=== PATIENT | female | born 1970 | race Caucasian/White ===

== ENCOUNTER 2016-11-16 02:04 | Observation (INO) | payer OTHER ==
[2016-11-16] MEDS ORDERED: NS 0.9% 1000 ML* 1,000 ML IV SCH (03:00)
[2016-11-16 03:27] LABS: Hematocrit 38 % (35-47); Hemoglobin 12.9 g/dl (12.0-16.0); Mean Corpuscular HGB Conc 34 g/dl (31-36); Mean Corpuscular Hemoglobin 30 pg (27-31); Mean Corpuscular Volume 90 fL (80-97); Mean Platelet Volume 8 um3 (7.4-10.4); Red Blood Count 4.25 10^6/ul (4.0-5.4); Red Cell Distribution Width 13 % (10.5-15); White Blood Count 9.7 10^3/ul (3.5-10.8)
[2016-11-16 03:39] LABS: Albumin 3.7 g/dL (3.2-5.2); BUN/Creatinine Ratio 20.8 (8-20); C Reactive Protein 6.47 mg/L (< 5.00); Calcium 8.9 mg/dL (8.6-10.3); EGFR African American 111.7 (>60); EGFR Non-African American 86.8 (>60); Globulin 2.8 g/dL (2-4); Magnesium 2.2 mg/dL (1.9-2.7); Potassium 3.5 mmol/L (3.5-5.0); Total Bilirubin 0.4 mg/dL (0.2-1.0); Total Protein 6.5 g/dL (6.4-8.9)
[2016-11-16 03:55] LABS: TSH (Thyroid Stimulating Horm) 0.9 mcIU/mL (0.34-5.60)
[2016-11-16] MEDS ORDERED: NS 0.9% 1000 ML* 1,000 ML IV ONE (04:28)
[2016-11-16 04:58] LABS: Urine Bilirubin Negative (Negative); Urine Glucose Negative (Negative); Urine Nitrite Negative (Negative)
[2016-11-16] MEDS ORDERED: Iohexol 350* (CONTRAST) 500 ML MDV IV ONE (05:15)
[2016-11-16] MEDS ORDERED: Ketorolac INJ* 30 MG/ML 1 ML VIAL IV ONE (05:58)
--- NOTE | 2016-11-16 08:01 | ED ---
Andrea Man Salem, scribed for Wade Draper MD on 11/16/16 at 0427 . HPI Chest Pain - HPI Summary HPI Summary: Patient is a 46 y/o female who presents to the ED with CP since 0100 today. She states that pain woke her up this morning and she has been having palpitations since. She also states that the pounding is intermittent, but pain is constant. She also reports nausea and vomiting a few times following onset and states that pain radiated from groin into RLE. She has constant abd pain and a cough at baseline, both of which are unchanged form baseline. Pt states that she took a 325mg ASA with alleviation. Pt reports that she had quit smoking 3 months ago, but started again this week. Pt states that she may be dehydrated as the last few days have been really busy for her. PSHx of cholecystectomy. No hx of asthma. - History of Current Complaint Chief Complaint: EDChestPainROMI Time Seen by Provider: 11/16/16 04:07 Hx Obtained From: Patient Onset/Duration: Started Hours Ago, Still Present Timing: Constant - CP., Intermittent - Pounding. Initial Severity: Moderate Current Severity: Moderate Chest Pain Location: Diffuse Chest Pain Radiates: Yes Chest Pain Radiates To:: Other - From groin to RLE. Character: Pounding Aggravating Factor(s): Nothing Alleviating Factor(s): Nothing Associated Signs and Symptoms: Positive: Chest Pain, Nausea, Palpitations, Abdominal Pain, Vomiting - Allergy/Home Medications Allergies/Adverse Reactions: Allergies Allergy/AdvReac Type Severity Reaction Status Date / Time Codeine Allergy Mild Headache Verified 06/22/15 10:06 Iodine Allergy Mild Rash Verified 06/22/15 10:06 Latex Allergy Unknown Verified 06/22/15 10:06 Reaction Details Penicillins Allergy Hives Verified 06/22/15 10:06 PMH/Surg Hx/FS Hx/Imm Hx Endocrine/Hematology History: Denies: Hx Anticoagulant Therapy, Hx Diabetes, Hx Thyroid Disease Cardiovascular History: Denies: Hx Hypertension, Hx Pacemaker/ICD Respiratory History: Denies: Hx Asthma, Hx Chronic Obstructive Pulmonary Disease (COPD) GI History: Reports: Other GI Disorders - Chronic loose stools History: Denies: Hx Renal Disease Musculoskeletal History: Reports: Hx Back Problems Sensory History: Denies: Hx Hearing Aid Neurological History: Denies: Hx Dementia, Hx Seizures Psychiatric History: Denies: Hx Panic Disorder, Hx Substance Abuse - Surgical History Surgery Procedure, Year, and Place: RIGHT KNEE ARTHROSCOPIC 1990 & 2000; GALLBLADDER REMOVED 2009; VERICOSE VEIN RT SIDE 2014 Infectious Disease History: No Infectious Disease History: Denies: Hx Hepatitis, Hx Human Immunodeficiency Virus (HIV), Traveled Outside the [place] in Last 30 Days - Family History Known Family History: Positive: Other - Leukemia - father. - Social History Alcohol Use: None Hx Substance Use: No Substance Use Type: Reports: None Hx Tobacco Use: Yes Smoking Status (MU): Current Some Day Smoker Type: Cigarettes Amount Used/How Often: 1-2 cigarettes/day Have You Smoked in the Last Year: Yes Review of Systems Negative: Fever Positive: Palpitations, Chest Pain Positive: Cough Positive: Abdominal Pain, Vomiting, Nausea All Other Systems Reviewed And Are Negative: Yes Physical Exam Triage Information Reviewed: Yes Vital Signs On Initial Exam: Initial Vitals BP 129/59 11/16/16 02:59 Vital Signs Reviewed: Yes Appearance: Positive: Well-Appearing, No Pain Distress Skin: Positive: Warm, Skin Color Reflects Adequate Perfusion, Dry Head/Face: Positive: Normal Head/Face Inspection Eyes: Positive: EOMI, DAWNA Neck: Positive: Supple, Nontender Respiratory/Lung Sounds: Positive: Clear to Auscultation, Breath Sounds Present Cardiovascular: Positive: RRR Abdomen Description: Positive: Nontender, Soft Bowel Sounds: Positive: Present Musculoskeletal: Positive: Normal, Strength/ROM Intact Neurological: Positive: Normal, Sensory/Motor Intact, Alert, Oriented to Person Place, Time Psychiatric: Positive: Affect/Mood Appropriate Diagnostics - Vital Signs Vital Signs Temp Pulse Resp BP Pulse Ox 11/16/16 03:30 71 23 125/53 95 11/16/16 03:06 97.2 F 73 18 132/53 94 11/16/16 03:00 132/53 11/16/16 02:59 129/59 - Laboratory Lab Results: Lab Results 11/16/16 11/16/16 11/16/16 Range/Units 03:00 03:00 03:00 WBC 9.7 (3.5-10.8) 10^3/ul RBC 4.25 (4.0-5.4) 10^6/ul Hgb 12.9 (12.0-16.0) g/dl Hct 38 (35-47) % MCV 90 (80-97) fL MCH 30 (27-31) pg MCHC 34 (31-36) g/dl RDW 13 (10.5-15) % Plt Count 271 (150-450) 10^3/ul MPV 8 (7.4-10.4) um3 Neut % (Auto) 55.7 (38-83) % Lymph % (Auto) 31.9 (25-47) % [place] % (Auto) 7.0 (1-9) % Eos % (Auto) 5.0 (0-6) % Baso % (Auto) 0.4 (0-2) % Absolute Neuts (auto) 5.4 (1.5-7.7) 10^3/ul Absolute Lymphs (auto) 3.1 (1.0-4.8) 10^3/ul Absolute Monos (auto) 0.7 (0-0.8) 10^3/ul Absolute Eos (auto) 0.5 (0-0.6) 10^3/ul Absolute Basos (auto) 0 (0-0.2) 10^3/ul Absolute Nucleated RBC 0 10^3/ul Nucleated RBC % 0 INR (Anticoag Therapy) 0.91 (0.89-1.11) APTT 31.7 (26.0-36.3) seconds D-Dimer, Quantitative < 200 (Less Than 230) ng/mL Sodium 138 (133-145) mmol/L Potassium 3.5 (3.5-5.0) mmol/L Chloride 106 (101-111) mmol/L Carbon Dioxide 27 (22-32) mmol/L Anion Gap 5 (2-11) mmol/L BUN 15 (6-24) mg/dL Creatinine 0.72 (0.51-0.95) mg/dL Est GFR ( Amer) 111.7 (>60) Est GFR (Non-Af Amer) 86.8 (>60) BUN/Creatinine Ratio 20.8 H (8-20) Glucose 133 H (70-100) mg/dL Lactic Acid (0.5-2.0) mmol/L Calcium 8.9 (8.6-10.3) mg/dL Magnesium 2.2 (1.9-2.7) mg/dL Total Bilirubin 0.40 (0.2-1.0) mg/dL AST 18 (13-39) U/L ALT 22 (7-52) U/L Alkaline Phosphatase 92 (34-104) U/L Total Creatine Kinase 166 (10-223) U/L CK-MB (CK-2) 6.0 (0.6-6.3) ng/mL Troponin I 0.00 (<0.04) ng/mL C-Reactive Protein 6.47 H (< 5.00) mg/L B-Natriuretic Peptide ( - 100) pg/mL Total Protein 6.5 (6.4-8.9) g/dL Albumin 3.7 (3.2-5.2) g/dL Globulin 2.8 (2-4) g/dL Albumin/Globulin Ratio 1.3 (1-3) Lipase 11 (11.0-82.0) U/L TSH 0.90 (0.34-5.60) mcIU/mL 11/16/16 11/16/16 Range/Units 03:00 03:00 WBC (3.5-10.8) 10^3/ul RBC (4.0-5.4) 10^6/ul Hgb (12.0-16.0) g/dl Hct (35-47) % MCV (80-97) fL MCH (27-31) pg MCHC (31-36) g/dl RDW (10.5-15) % Plt Count (150-450) 10^3/ul MPV (7.4-10.4) um3 Neut % (Auto) (38-83) % Lymph % (Auto) (25-47) % [place] % (Auto) (1-9) % Eos % (Auto) (0-6) % Baso % (Auto) (0-2) % Absolute Neuts (auto) (1.5-7.7) 10^3/ul Absolute Lymphs (auto) (1.0-4.8) 10^3/ul Absolute Monos (auto) (0-0.8) 10^3/ul Absolute Eos (auto) (0-0.6) 10^3/ul Absolute Basos (auto) (0-0.2) 10^3/ul Absolute Nucleated RBC 10^3/ul Nucleated RBC % INR (Anticoag Therapy) (0.89-1.11) APTT (26.0-36.3) seconds D-Dimer, Quantitative (Less Than 230) ng/mL Sodium (133-145) mmol/L Potassium (3.5-5.0) mmol/L Chloride (101-111) mmol/L Carbon Dioxide (22-32) mmol/L Anion Gap (2-11) mmol/L BUN (6-24) mg/dL Creatinine (0.51-0.95) mg/dL Est GFR ( Amer) (>60) Est GFR (Non-Af Amer) (>60) BUN/Creatinine Ratio (8-20) Glucose (70-100) mg/dL Lactic Acid 1.1 (0.5-2.0) mmol/L Calcium (8.6-10.3) mg/dL Magnesium (1.9-2.7) mg/dL Total Bilirubin (0.2-1.0) mg/dL AST (13-39) U/L ALT (7-52) U/L Alkaline Phosphatase (34-104) U/L Total Creatine Kinase (10-223) U/L CK-MB (CK-2) (0.6-6.3) ng/mL Troponin I (<0.04) ng/mL C-Reactive Protein (< 5.00) mg/L B-Natriuretic Peptide 12 ( - 100) pg/mL Total Protein (6.4-8.9) g/dL Albumin (3.2-5.2) g/dL Globulin (2-4) g/dL Albumin/Globulin Ratio (1-3) Lipase (11.0-82.0) U/L TSH (0.34-5.60) mcIU/mL Result Diagrams: 11/16/16 03:00 11/16/16 03:00 Lab Statement: Any lab studies that have been ordered have been reviewed, and results considered in the medical decision making process. - Radiology CXR Radiology Interpretation Completed By: Radiologist - IMPRESSION: see EMR pending. - CT CHEST CT Interpretation Completed By: Radiologist - IMPRESSION:According to the technologist, the IV is not optimally positioned. There was leakage of contrast during the injection and only 60 cc were injected. Therefore the scan is limited due to under opacification of the pulmonary arteries. The main pulmonary artery contrast density is 126 Hounsfield units, well short of the minimum acceptable 200 Hounsfield units. No pulmonary embolus of the main, right , or left pulmonary arteries or their major central branch point. The pulmonary arteries distal to this cannot be adequately assessed for pulmonary embolus. Negative for thoracic aortic aneurysm or dissection. Lungs are clear of acute disease. 7mm noncalcified right lower lobe nodule (adjacent to a calcified granuloma). Follow-up recommended according to established criteria. Calcified granuloma left lower lobe. Chest Pain Course/Dx - Course Course Of Treatment: NO CRITICAL CARE TIME Assessment/Plan: STABLE IN ED. DISPOSITION PENDING AT SHIFT CHANGE. - Diagnoses Provider Diagnoses: Chest pain Discharge - Discharge Plan Condition: Stable Disposition: OTHER Discharge Disposition Comment: C Referrals: Anny Laurent MD [Primary Care Provider] - The documentation as recorded by the Andrea acharya Salem accurately reflects the service I personally performed and the decisions made by , Wade Draper MD.
--- NOTE | 2016-11-16 08:11 | RAD ---
INDICATION: Chest pain. COMPARISON: Comparison is made with a prior chest x-ray study from November 15, 2012. TECHNIQUE: A portable view of the chest was obtained. FINDINGS: Cardiac and mediastinal contours appear to be within normal limits. The lungs are clear. No pleural effusion is seen. IMPRESSION: NO EVIDENCE FOR ACUTE DISEASE.
[2016-11-16] MEDS ORDERED: Nitroglycerin TAB 0.4 MG* 0.4 MG TAB SL ONE (08:26)
--- NOTE | 2016-11-16 08:28 | RAD ---
INDICATION: Chest pain. Short of breath. Evaluate for pulmonary embolus. COMPARISON: CT abdomen pelvis September 09, 2014 TECHNIQUE: Axial source images were obtained from the thoracic inlet to the hemidiaphragms following administration of [address] angiographic technique was utilized. Coronal and sagittal reconstructed images were acquired. The total dose of contrast was believed to be approximately 60 mL due to patient with the IV. This results in suboptimal opacification of pulmonary arteries. The examination will need to be repeated if indicated. By report the d-dimer was negative and the decision was made not to repeat the examination. CHEST FINDINGS: Neck/thyroid: The visualized neck to include the thyroid appear normal. Chest wall: There are no acute abnormalities of the bony thorax or chest wall. There is no supraclavicular, infraclavicular, or axillary lymphadenopathy. Lungs : There are calcified and noncalcified granulomas in the lung bases similar to the 2015 examination. The pulmonary interstitium appears normal. There are no endobronchial lesions. Cardiomediastinal structures: There is no CT evidence of acute pulmonary embolic disease involving the main pulmonary trunk are right or left main pulmonary arteries. More peripheral pulmonary arteries are not adequately opacified. The heart is normal in size. There is no pericardial effusion. There is no evidence of aortic aneurysm or dissection. There is no mediastinal or hilar adenopathy. There are numerous calcified mediastinal lymph nodes. The esophagus appears normal. Pleura : There are no pleural-based masses or effusions. Other: None. IMPRESSION: SUBOPTIMAL PULMONARY ARTERIAL OPACIFICATION (SEE ABOVE). OLD GRANULOMATOUS DISEASE.
--- NOTE | 2016-11-16 08:32 | ED ---
Tima Man Matthew, scribed for Gustavo Cash MD on 11/16/16 at 0759 . Progress - Progress Note Progress Note: Patient was signed out by Dr. Draper. A 46 y/o female presents to the ED with chest pain. She states that she continues to have the chest pain. VITAL SIGNS: Reviewed. GENERAL: Patient is an obese female who is lying comfortable in the stretcher. Patient is not in any acute respiratory distress. HEAD AND FACE: No signs of trauma. No ecchymosis, hematomas or skull depressions. No sinus tenderness. . EARS: Hearing grossly intact. Ear canals and tympanic membranes are within normal limits. MOUTH: Oropharynx within normal limits. NECK: Supple, trachea is midline, no adenopathy, no JVD, no carotid bruit, no c- spine tenderness, neck with full ROM. CHEST: Symmetric, no tenderness at palpation LUNGS: Clear to auscultation bilaterally. No wheezing or crackles. CVS: Regular rate and rhythm, S1 and S2 present, no murmurs or gallops appreciated. ABDOMEN: Soft, non-tender. No signs of distention. No rebound no guarding, and no masses palpated. Bowel sounds are normal. EXTREMITIES: FROM in all major joints, no edema, no cyanosis or clubbing. NEURO: Alert and oriented x 3. No acute neurological deficits. Speech is normal and follows commands. 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 As per recommendation from Dr. Draper to admit patient to R/O ACS. She had a Chest CT and r/o a PE. I discussed the case with Dr. Zamorano form the hospitalist services and he accepted the patient for admission. Patient is A+O x and he is hemodynamically stable. The patient is in stable condition and is being admitted to [facility]. Course/Dx - Diagnoses Provider Diagnoses: Chest pain, CHest pain r/o ACS - Provider Notifications Discussed Care Of Patient With: Dr. Zamorano (Hospitalist) at 08:16 -- Notified of patient's history and will admit the paitent. The documentation as recorded by the Tima acharya Matthew accurately reflects the service I personally performed and the decisions made by Shailesh lopez Walter, MD.
[2016-11-16] MEDS ORDERED: Acetaminophen TAB* 325 MG PO PRN (11:30)
[2016-11-16] MEDS ORDERED: Enoxaparin(*) 40 MG/0.4 ML SYR SUBCUT SCH (12:00)
[2016-11-16] MEDS ORDERED: Aminophylline IV* 25 MG/ML 10 ML VIAL ONE (12:56)
[2016-11-16] MEDS ORDERED: Regadenoson* 0.4 MG/5 ML SYRINGE ONE (12:56)
--- NOTE | 2016-11-16 15:36 | HP ---
HISTORY AND PHYSICAL: DATE OF ADMISSION: 11/16/16 PRIMARY CARE PHYSICIAN: Anny Laurent MD CHIEF COMPLAINT: Chest pain. HISTORY OF PRESENT ILLNESS: Ms. Saji Crouch is a 46-year-old female with past medical history of chronic pain, osteoarthritis, who presents to the hospital after awakening this morning with chest pain. She states yesterday she was feeling well. She cleaned the house and thinks that maybe she "overdid it." She was very tired before bed and went right to sleep; however, she woke up at 1 a.m. with a sharp stabbing pain in the left side of the chest that did not radiate. She states she sat up on the side of the bed and felt very nauseous and had one episode of emesis in the bathroom. She felt dizzy and faint and also had some palpitations. She states that after she threw up, the palpitations seemed to improve; however, she developed chest pressure on the left side and called EMS. She said when EMS came, she had some right lower extremity numbness and she thought possibly some weakness, although she admits that her legs were oddly bent underneath her as she was sitting on the bathroom floor. She took aspirin 325 mg at home and she states that that improved the pain within about 10 minutes; however, it has not completely resolved and is still persistent presently. She states it is worse with movement, like moving around on the bed, not sure if it is worse with exertion. Sometimes, it is worse with deep breathing and she states it is tender to palpation. In the ED, she received some Toradol. Recently, she has been feeling fairly well. She denies any fever or chills. She has had a mild cough, has chronic abdominal pain that may be worsening lately. She denies any dysuria. No blood. She has had some loose stools, which is also a chronic issue. PAST MEDICAL HISTORY: Chronic pain, OA. PAST SURGICAL HISTORY: 1. Cholecystectomy. 2. Knee arthroscopy x2. 3. Varicose vein stripping in 2013. 4. Colonoscopy in 2009. HOME MEDICATIONS: Occasionally, she will take Motrin, but no scheduled medications. ALLERGIES: PENICILLIN, CODEINE, IODINE, and LATEX. FAMILY HISTORY: Significant for mother with diabetes and hypothyroidism, father with leukemia and CAD, maternal grandfather with diabetes, maternal grandmother with lung cancer, paternal grandmother with hypertension. SOCIAL HISTORY: The patient smoked about a pack and a half per day for 20 years , had stopped about 3 months ago, but resumed smoking within the past few days. She denies any alcohol or illicit drug use. REVIEW OF SYSTEMS: A 12-point review of systems negative except for that as noted in the HPI. PHYSICAL EXAMINATION GENERAL: The patient is a morbidly obese female, lying in bed, in no apparent distress. VITAL SIGNS: On admission, temperature 97.2, heart rate of 73, respiratory rate of 18, O2 saturation 94% on room air, blood pressure 132/53. HEENT: Anicteric sclerae. Moist mucous membranes. No cervical adenopathy. CARDIOVASCULAR: Regular rate and rhythm. S1 and S2 present. No murmurs, gallops, or rubs. LUNGS: Clear to auscultation bilaterally. No wheezes, rales, or rhonchi. The patient does have reproducible chest pain in the left midsternal area. ABDOMEN: Obese, soft, nondistended. Mild tender to palpation diffusely. Bowel sounds positive. EXTREMITIES: No cyanosis, clubbing, or edema. Strength is 5/5 throughout bilateral lower extremities. Reports possibly some mild decreased sensation in the right lower extremity. NEURO: The patient is alert and oriented x3. SKIN: Warm, dry, and well perfused. LABORATORY DATA/DIAGNOSTIC STUDIES: White blood cell count of 9.7, hematocrit of 38, platelets of 271. INR is 0.91, sodium 138, potassium 3.5, chloride 106, carbon dioxide 27, BUN of 15, creatinine 0.72, glucose of 133, lactic acid of 1.1. LFTs within normal limits. Troponin of 0.00 x2. CRP of 6.47. TSH of 0.9. UA with trace ketones. Chest x-ray, personally reviewed, shows no acute disease. EKG, personally reviewed, shows normal sinus rhythm. No ischemic changes. The patient underwent a CTA of the chest that was suboptimal for a PE evaluation; however, the patient did have a negative D-dimer. ASSESSMENT AND PLAN: Chest pain, palpitations, with associated nausea and vomiting in a 46-year-old female with past medical history of morbid obesity, chronic pain. 1. Chest pain and palpitations. The patient does have some cardiac risk factors with a smoking history, morbid obesity, sedentary lifestyle, and possible family history; however, her pain seems to be reproducible, which makes ischemic cause less likely; however, with the patient's palpitations, we will monitor on telemetry. I have ordered a stress test and we will continue to trend troponins one more time. For now, we will treat the patient's pain with Tylenol and ibuprofen as this seems like this could possibly just be a musculoskeletal cause. The patient received a full dose of aspirin early this morning. We will continue with a baby aspirin daily for now. 2. DVT prophylaxis. Lovenox subcu. 3. Code status. The patient is a full code. TIME SPENT: Total time spent on this admission 40 minutes, with over half the time spent [id number] with the patient in counseling and coordinating care. CC: Anny Laurent MD* [id number]/CPS #: [id number] MTDD
[2016-11-16] MEDS ORDERED: Nitroglycerin TAB 0.4 MG* 0.4 MG TAB SL PRN (18:09)
[2016-11-16] MEDS: Omeprazole CAP* 20 MG PO SCH (18:54)
[2016-11-17] MEDS: Ibuprofen TAB* 400 MG PO PRN ×2 (03:41→10:32)
[2016-11-17] MEDS: Omeprazole CAP* 20 MG PO SCH (05:46)
[2016-11-17 08:28] VITALS: BP 116/59
--- NOTE | 2016-11-17 08:28 | RAD ---
INDICATION: Chest pain COMPARISON: None TECHNIQUE: Rest images were acquired following the intravenous injection of 25.9 millicuries of technetium 99m tetrofosmin. Pharmacologic stress images were acquired following the intravenous administration of 25.4 millicuries of technetium 99m tetrofosmin. FINDINGS: There are no definitive defects of the stress-induced or fixed nature. The cardiac chamber size is normal. There are no wall motion abnormalities. The ejection fraction is calculated at 61 percent during rest and 60 during stress. IMPRESSION: NO DEFINITIVE DEFECTS OR STRESS-INDUCED OR FIXED NATURE. NORMAL EJECTION FRACTION. ASSESSMENT: LOW-RISK Based on imaging criteria from ACC/AHA 2002 Guideline Update for the Management of Patients With Chronic Stable Angina Table 23. Noninvasive Risk Stratification.
[2016-11-17] MEDS ORDERED: Aspirin EC Low Dose* 81 MG TAB.EC PO SCH (09:00)
--- NOTE | 2016-11-21 06:55 | PN ---
Hospitalist Progress Note . HOSPITALIST DISCHARGE NOTE: See dc instructions and summary by me. Patient stable for dc dc instructions reviewed with the patient at the bedside. DC patient home today.
--- NOTE | 2016-11-21 08:25 | DS ---
DISCHARGE SUMMARY: DATE OF ADMISSION: 11/16/16 DATE OF DISCHARGE: 11/17/16 STATUS DURING HOSPITALIZATION: Observation. PRIMARY CARE PHYSICIAN: Anny Laurent MD. PRINCIPAL DISCHARGE DIAGNOSIS: Chest pain likely secondary to gastroesophageal reflux disease status post nuclear exercise stress test with low risk assessment as per 2002 AHA/ACC criteria. DISCHARGE MEDICATIONS: 1. Aspirin 81 mg by mouth daily - enteric coated. 2. Omeprazole 20 mg by mouth daily for presumed reflux. HISTORY OF PRESENT ILLNESS AND HOSPITAL COURSE: Please see H and P by Dr. Naeem Zamorano on 11/16/16. In brief, Ms. Crouch is a 46-year-old female with a past medical history of chronic pain osteoarthritis who came to the hospital after awakening the morning of admission with chest pain. The patient thinks she might have overexerted herself the day prior to admission and was very tired before bed and woke up at 1 a.m. with a sharp stabbing pain in the left side of her chest that did not radiate. The patient felt nauseous, had one episode of emesis. She felt dizzy and faint with some palpitations, but did not actually lose consciousness. She did throw up and felt that she might have been improving, but then reexperienced chest pressure on the left side and called EMS. The patient had some atypical symptoms including right lower extremity numbness and possibly some weakness. The patient states that she might have been bending her knee oddly in the bathroom floor while she was vomiting. The patient was brought to the emergency room and did not have an acute EKG suggesting STEMI. Her cardiac enzymes remained negative. She then proceeded with a nuclear stress test, which was low risk. During her ED evaluation, she had a CTA, which was suboptimal for PE, but the patient did have a negative D-dimer, so the question of PE was generally settled (as negative). The patient did not reexperience any chest pain during the hospitalization. We discussed she has some risk factors including her smoking history, morbid obesity, a sedentary lifestyle and possibly a family history. The patient is going to take prophylactic aspirin and she is going to engage in lifestyle improvements, which we spoke about at discharge. The patient is leaving the hospital in stable condition. She is going to follow up with Dr. Laurent next week in the outpatient setting. She can come back to the hospital if she has any recurrence of symptomatology including but not limited to chest pain, lightheadedness, shortness of breath, loss of consciousness, or any other worrisome symptoms that does not immediately resolve. CONDITION ON DISCHARGE: Stable. TIME SPENT: Total time taken to discharge Ms. Crouch was 45 minutes, greater than half that time spent going over the discharge instructions including lifestyle education and counseling. CC: Anny Laurent MD* [id number]/CPS #: [id number] [facility]
== END 2016-11-17 11:32 | disposition home or self-care (01) ==
LOC: ED 02:04 → MEDTELE 08:16
PROVIDERS: ADMIT Hospitalist; ATTEND Internal Medicine
DX: R07.9 Chest pain, unspecified (principal); R00.2 Palpitations; Z88.0 Allergy status to penicillin; Z88.8 Allergy status to other drugs, medicaments and biological substances; F17.210 Nicotine dependence, cigarettes, uncomplicated; R10.9 Unspecified abdominal pain; R11.2 Nausea with vomiting, unspecified
CPT/HCPCS: 36415; 71010; 71275; 78452; 80053; 81003; 82550; 82553; 83605; 83690; 83735; 83880; 84443; 84484; 85025; 85379; 85610; 85730; 86140; 93005; 93017; 96372; 99284; 99406; A9270-GY; A9502; G0378; J0280; J1650; J1885; J2785; Q9967

== ENCOUNTER 2016-12-02 22:24 | Emergency (ER) | payer OTHER ==
[2016-12-02] MEDS ORDERED: Aspirin Low Dose CHEW TAB* 81 MG PO ONE (22:57)
[2016-12-03 00:47] LABS: Hematocrit 37 % (35-47); Hemoglobin 12.3 g/dl (12.0-16.0); Mean Corpuscular HGB Conc 34 g/dl (31-36); Mean Corpuscular Hemoglobin 30 pg (27-31); Mean Corpuscular Volume 91 fL (80-97); Mean Platelet Volume 8 um3 (7.4-10.4); Red Blood Count 4.06 10^6/ul (4.0-5.4); Red Cell Distribution Width 13 % (10.5-15)
--- NOTE | 2016-12-03 00:55 | ED ---
HPI Chest Pain <Graeme Chao - Last Filed: 12/03/16 01:15> - HPI Summary HPI Summary: Patient presents with intermittent chest pain for months that occurs without known cause. She says it wakes her from sleep with a start and can last for hours. She pain when her chest is pushed on, and she has altered sensation in her bilateral arms. She had a cardiac work-up with admission at this hospital on 11/16/16 and normal cardiac stress test on 11/17/16. Her pain is consistent with her previous symptoms. She denies sweating, lightheadedness, or nausea. Her pain made worse with deep breaths and palpation. It is not made worse with exertion or better with rest. She has not followed-up with her regular doctor as instructed and has not seen them in "2 years". - History of Current Complaint Hx Obtained From: Patient Onset/Duration: Started Weeks Ago, Atraumatic Timing: Intermittent - lasting minutes to hours Initial Severity: Moderate Current Severity: Moderate Pain Intensity: 7 Chest Pain Location: Left Anterior Chest Pain Radiates: Yes Chest Pain Radiates To:: Arm - bilateral arms do not have pain but have altered sensation Character: Dull/Aching Aggravating Factor(s): Deep Breaths, Other: - palpation Alleviating Factor(s): Nothing Associated Signs and Symptoms: Positive: Chest Pain, Tingling <Yoandy Gómez - Last Filed: 12/03/16 01:29> - History of Current Complaint Chief Complaint: EDChestWallPain Time Seen by Provider: 12/02/16 22:57 - Allergy/Home Medications Allergies/Adverse Reactions: Allergies Allergy/AdvReac Type Severity Reaction Status Date / Time Codeine Allergy Mild Headache Verified 06/22/15 10:06 Iodine Allergy Mild Rash Verified 06/22/15 10:06 Latex Allergy Unknown Verified 06/22/15 10:06 Reaction Details Penicillins Allergy Hives Verified 06/22/15 10:06 PMH/Surg Hx/FS Hx/Imm Hx Endocrine/Hematology History: Denies: Hx Anticoagulant Therapy, Hx Diabetes, Hx Thyroid Disease Cardiovascular History: Denies: Hx Angina, Hx Congestive Heart Failure, Hx Coronary Artery Disease, Hx Hypercholesterolemia, Hx Hypertension, Hx Myocardial Infarction, Hx Pacemaker /ICD, Hx Valvular Heart Disease Respiratory History: Reports: Hx Asthma, Other Respiratory Problems/Disorders - KNOWN LUNG NODULES, FOLLOWED WITH PERIODIC CT SCANS Denies: Hx Chronic Obstructive Pulmonary Disease (COPD) GI History: Reports: Hx Gall Bladder Disease, Other GI Disorders - Chronic loose stools History: Denies: Hx Renal Disease Musculoskeletal History: Reports: Hx Back Problems Sensory History: Reports: Hx Contacts or Glasses - glasses at home Denies: Hx Hearing Aid Opthamlomology History: Reports: Hx Contacts or Glasses - glasses at home Neurological History: Denies: Hx Dementia, Hx Seizures Psychiatric History: Denies: Hx Panic Disorder, Hx Substance Abuse - Surgical History Surgery Procedure, Year, and Place: RIGHT KNEE ARTHROSCOPIC 1990 & 2000; GALLBLADDER REMOVED 2009; VERICOSE VEIN RT SIDE 2013 Infectious Disease History: Denies: Hx Hepatitis, Hx Human Immunodeficiency Virus (HIV), Traveled Outside the [place] in Last 30 Days - Family History Known Family History: Positive: Other - Leukemia - father. - Social History Lives: With Family Alcohol Use: None Hx Substance Use: No Substance Use Type: Reports: None Hx Tobacco Use: Yes Smoking Status (MU): Current Some Day Smoker Type: Cigarettes Amount Used/How Often: 1-2 cigarettes/day Have You Smoked in the Last Year: Yes Cessation Counseling: Patient Advised to Stop <Yoandy Gómez - Last Filed: 12/03/16 01:29> Review of Systems Negative: Fever, Chills Positive: Chest Pain Negative: Shortness Of Breath, Cough Negative: Vomiting, Nausea Positive: Myalgia Positive: Anxious All Other Systems Reviewed And Are Negative: Yes <Yoandy Gómez - Last Filed: 12/03/16 01:29> Physical Exam Vital Signs On Initial Exam: Initial Vitals Pulse Resp BP Pulse Ox 76 18 153/81 98 12/02/16 22:29 12/02/16 22:29 12/02/16 22:29 12/02/16 22:29 <Graeme Chao - Last Filed: 12/03/16 01:15> Triage Information Reviewed: Yes Vital Signs On Initial Exam: Initial Vitals Pulse Resp BP Pulse Ox 76 18 153/81 98 12/02/16 22:29 12/02/16 22:29 12/02/16 22:29 12/02/16 22:29 Vital Signs Reviewed: Yes Appearance: Positive: Well-Appearing, No Pain Distress, Obese Skin: Positive: Warm, Skin Color Reflects Adequate Perfusion, Dry, Soft Head/Face: Positive: Normal Head/Face Inspection Eyes: Positive: EOMI, DAWNA, Conjunctiva Clear ENT: Positive: Hearing grossly normal Respiratory/Lung Sounds: Positive: Clear to Auscultation, Breath Sounds Present Cardiovascular: Positive: RRR Abdomen Description: Positive: Nontender, Soft Bowel Sounds: Positive: Present Musculoskeletal: Negative: Edema Left, Edema Right Neurological: Positive: Sensory/Motor Intact, Alert, Oriented to Person Place, Time, NV Bundle Intact Distally Psychiatric: Positive: Affect/Mood Appropriate AVPU Assessment: Alert <Yoandy Gómez - Last Filed: 12/03/16 01:29> Diagnostics - Vital Signs Vital Signs Pulse Resp BP Pulse Ox 12/03/16 01:00 72 118/55 95 12/03/16 00:30 68 123/56 96 12/03/16 00:01 69 123/81 97 12/03/16 00:00 69 97 12/02/16 23:38 130/63 12/02/16 22:29 76 18 153/81 98 - Laboratory Lab Results: Lab Results 12/03/16 12/03/16 12/03/16 Range/Units 00:15 00:15 00:15 WBC 8.0 (3.5-10.8) 10^3/ul RBC 4.06 (4.0-5.4) 10^6/ul Hgb 12.3 (12.0-16.0) g/dl Hct 37 (35-47) % MCV 91 (80-97) fL MCH 30 (27-31) pg MCHC 34 (31-36) g/dl RDW 13 (10.5-15) % Plt Count 269 (150-450) 10^3/ul MPV 8 (7.4-10.4) um3 Neut % (Auto) 45.2 (38-83) % Lymph % (Auto) 41.3 (25-47) % Sevier % (Auto) 6.7 (1-9) % Eos % (Auto) 6.0 (0-6) % Baso % (Auto) 0.8 (0-2) % Absolute Neuts (auto) 3.6 (1.5-7.7) 10^3/ul Absolute Lymphs (auto) 3.3 (1.0-4.8) 10^3/ul Absolute Monos (auto) 0.5 (0-0.8) 10^3/ul Absolute Eos (auto) 0.5 (0-0.6) 10^3/ul Absolute Basos (auto) 0.1 (0-0.2) 10^3/ul Absolute Nucleated RBC 0 10^3/ul Nucleated RBC % 0 Sodium 138 (133-145) mmol/L Potassium 3.4 L (3.5-5.0) mmol/L Chloride 105 (101-111) mmol/L Carbon Dioxide 25 (22-32) mmol/L Anion Gap 8 (2-11) mmol/L BUN 13 (6-24) mg/dL Creatinine 0.64 (0.51-0.95) mg/dL Est GFR ( Amer) 127.9 (>60) Est GFR (Non-Af Amer) 99.5 (>60) BUN/Creatinine Ratio 20.3 H (8-20) Glucose 159 H (70-100) mg/dL Lactic Acid 1.4 (0.5-2.0) mmol/L Calcium 8.8 (8.6-10.3) mg/dL Magnesium 2.1 (1.9-2.7) mg/dL Total Bilirubin 0.30 (0.2-1.0) mg/dL AST 19 (13-39) U/L ALT 28 (7-52) U/L Alkaline Phosphatase 96 (34-104) U/L Troponin I 0.00 (<0.04) ng/mL Total Protein 6.2 L (6.4-8.9) g/dL Albumin 3.6 (3.2-5.2) g/dL Globulin 2.6 (2-4) g/dL Albumin/Globulin Ratio 1.4 (1-3) Result Diagrams: 12/03/16 00:15 12/03/16 00:15 Lab Statement: Any lab studies that have been ordered have been reviewed, and results considered in the medical decision making process. <Graeme Chao - Last Filed: 12/03/16 01:15> - Vital Signs Vital Signs Pulse Resp BP Pulse Ox 12/02/16 22:29 76 18 153/81 98 - Laboratory Result Diagrams: 12/03/16 00:15 12/03/16 00:15 Lab Statement: Any lab studies that have been ordered have been reviewed, and results considered in the medical decision making process. - Radiology No standard instances Xray Interpretation: No Acute Changes Radiology Interpretation Completed By: Radiologist - EKG No standard instances Cardiac Rate: NL EKG Rhythm: Sinus Rhythm ST Segment: Normal Ectopy: None EKG Comparison: No Significant Change <Yoandy Gómez - Last Filed: 12/03/16 01:29> Chest Pain Course/Dx <Graeme Chao - Last Filed: 12/03/16 01:15> - Chest Pain Differential Diagnosis/HQI/PQRI: Acute OH, ACS, Angina, CHF, Chest Wall, Lower Respiratory Infection, Pulmonary Edema <Yoandy Gómez - Last Filed: 12/03/16 01:29> - Diagnoses Provider Diagnoses: Chest wall pain Discharge <Graeme Chao - Last Filed: 12/03/16 01:15> <Yoandy Gómez - Last Filed: 12/03/16 01:29> - Discharge Plan Condition: Stable Disposition: HOME Patient Education Materials: Chest Wall Pain (ED) Referrals: Anny Laurent MD [Primary Care Provider] - Additional Instructions: It is important that you call your regular doctor for a follow-up appointment in 1-3 days for repeat evaluation. Your regular provider will be the person to follow you and make sure your are doing well. Return to the emergency department if your symptoms worsen.
[2016-12-03 00:59] LABS: Albumin 3.6 g/dL (3.2-5.2); BUN/Creatinine Ratio 20.3 (8-20); Calcium 8.8 mg/dL (8.6-10.3); EGFR African American 127.9 (>60); EGFR Non-African American 99.5 (>60); Globulin 2.6 g/dL (2-4); Magnesium 2.1 mg/dL (1.9-2.7); Potassium 3.4 mmol/L (3.5-5.0); Total Bilirubin 0.3 mg/dL (0.2-1.0); Total Protein 6.2 g/dL (6.4-8.9)
[2016-12-03 01:15] VITALS: BP 118/55
[2016-12-03] MEDS ORDERED: Ibuprofen TAB* 600 MG PO ONE (01:28)
--- NOTE | 2016-12-03 07:56 | RAD ---
Indication: Chest pain. Single frontal view of the chest performed at 2349 hours was reviewed. Comparison is made with previous exam dated November 16, 2016. No mediastinal shift is noted. Heart is of normal size and configuration. Lung handy appear clear. IMPRESSION: NO ACTIVE CARDIOPULMONARY DISEASE IS NOTED.
== END 2016-12-03 02:15 | disposition home or self-care (01) ==
LOC: ED 22:24
DX: R07.89 Other chest pain (principal); M79.602 Pain in left arm; M79.601 Pain in right arm
CPT/HCPCS: 36415; 71010; 80053; 83605; 83735; 84484; 85025; 93005; 99282; A9270-GY

== ENCOUNTER → 2017-01-05 18:09 | Emergency (ER) | payer OTHER ==
[2017-01-05 18:39] VITALS: BP 155/87
== END | disposition left against medical advice (07) ==
LOC: ED 18:09
DX: R05 Cough (principal); Z53.21 Procedure and treatment not carried out due to patient leaving prior to being seen by health care provider
CPT/HCPCS: 93005

== ENCOUNTER 2019-05-18 21:35 | Inpatient (IN) | payer OTHER ==
[2019-05-18] MEDS ORDERED: Lidocaine 2% VISCOUS* 15 ML UDC PO ONE (22:04)
[2019-05-18] MEDS ORDERED: Al Hydrox/Mg Hydrox/Simet LIQ* 30 ML UDC PO ONE (22:04)
[2019-05-18] MEDS ORDERED: Ketorolac INJ* 30 MG/ML 1 ML VIAL IV PUSH ONE (22:05)
[2019-05-18] MEDS ORDERED: Dicyclomine CAP* 10 MG PO ONE (22:05)
--- NOTE | 2019-05-18 22:08 | ED ---
HPI Chest Pain - HPI Summary HPI Summary: This patient is a 49 year old F presenting to [facility] with a chief complaint of chest pain radiating to right arm and right jaw/neck area with sudden onset one hour ago today 05/18/19. The CC is described as someone crushing sternum really bad and right arm pain described as someone was squeezing her. The patient rates the pain 10/10 in severity at onset and 8/10 currently when staying still but symptoms aggravated by movements. Symptoms alleviated by nothing. 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 Pt also reports hx gallbladder removal and recent symptoms like her gallbladder was still there for last couple of weeks. Pt reports right upper quadrant pain in abdominal pain. Denies any current consumption of medications. Pt was admitted a few years ago for slight heart attack. - History of Current Complaint Chief Complaint: EDChestPainROMI Time Seen by Provider: 05/18/19 21:59 Hx Obtained From: Patient Onset/Duration: Started Hours Ago - q, Still Present Timing: Constant Initial Severity: Severe Current Severity: Severe Pain Intensity: 10 Pain Scale Used: 0-10 Numeric Chest Pain Radiates To:: Arm, Jaw Character: Other: - someone crushing sternum really bad Aggravating Factor(s): Movement Alleviating Factor(s): Nothing Associated Signs and Symptoms: Positive: Abdominal Pain - Allergy/Home Medications Allergies/Adverse Reactions: Allergies Allergy/AdvReac Type Severity Reaction Status Date / Time codeine Allergy Headache Verified 05/18/19 22:22 iodine Allergy Rash Verified 05/18/19 22:22 latex Allergy Unknown Verified 05/18/19 22:22 Reaction Details Penicillins Allergy Hives Verified 05/18/19 22:22 PMH/Surg Hx/FS Hx/Imm Hx Endocrine/Hematology History: Denies: Hx Anticoagulant Therapy, Hx Diabetes, Hx Thyroid Disease Cardiovascular History: Denies: Hx Angina, Hx Congestive Heart Failure, Hx Coronary Artery Disease, Hx Hypercholesterolemia, Hx Hypertension, Hx Myocardial Infarction, Hx Pacemaker /ICD, Hx Valvular Heart Disease Respiratory History: Reports: Hx Asthma, Other Respiratory Problems/Disorders - KNOWN LUNG NODULES, FOLLOWED WITH PERIODIC CT SCANS Denies: Hx Chronic Obstructive Pulmonary Disease (COPD) GI History: Reports: Hx Gall Bladder Disease, Other GI Disorders - Chronic loose stools History: Denies: Hx Renal Disease Musculoskeletal History: Reports: Hx Back Problems Sensory History: Reports: Hx Contacts or Glasses - glasses at home Opthamlomology History: Reports: Hx Contacts or Glasses - glasses at home Neurological History: Denies: Hx Dementia, Hx Seizures Psychiatric History: Denies: Hx Panic Disorder, Hx Substance Abuse - Surgical History Surgery Procedure, Year, and Place: RIGHT KNEE ARTHROSCOPIC 1990 & 2000; GALLBLADDER REMOVED 2009; VERICOSE VEIN RT SIDE 2013 Infectious Disease History: No Infectious Disease History: Denies: Hx Hepatitis, Hx Human Immunodeficiency Virus (HIV), Traveled Outside the [place] in Last 30 Days - Family History Known Family History: Positive: Other - Leukemia - father. - Social History Alcohol Use: None Hx Substance Use: No Substance Use Type: Reports: None Hx Tobacco Use: Yes Smoking Status (MU): Current Some Day Smoker Type: Cigarettes Amount Used/How Often: 1-2 cigarettes/day Have You Smoked in the Last Year: Yes Review of Systems Positive: Other - jaw pain Positive: Chest Pain Positive: Abdominal Pain Positive: Other - right arm pain All Other Systems Reviewed And Are Negative: Yes Physical Exam - Summary Physical Exam Summary: Appearance: Well-appearing, Well-nourished, lying in bed comfortably Skin: Warm, dry, no obvious rash Eyes: sclera anicteric, no conjunctival pallor ENT: mucous membranes moist, pharynx appears normal Neck: Supple, nontender Respiratory: Clear to auscultation, no signs of respiratory distress Cardiovascular: Normal S1, S2. No murmurs. Normal distal pulses in tibial and radial bilaterally. Abdomen: tenderness over sternum inferiorly. Musculoskeletal: Normal, Strength/ROM Intact Neurological: A&Ox3, awake and alert, mentation is normal, speech is fluent and appropriate Psychiatric: affect is normal, does not appear anxious or depressed Triage Information Reviewed: Yes Vital Signs On Initial Exam: Initial Vitals Temp Pulse Resp BP Pulse Ox 98.6 F 80 20 191/98 98 05/18/19 21:49 05/18/19 21:49 05/18/19 21:49 05/18/19 21:49 05/18/19 21:49 Vital Signs Reviewed: Yes Procedures - Sedation Patient Received Moderate/Deep Sedation with Procedure: No Diagnostics - Vital Signs Vital Signs Temp Pulse Resp BP Pulse Ox 05/18/19 21:49 98.6 F 80 20 191/98 98 - Laboratory Result Diagrams: 05/20/19 05:59 05/21/19 04:04 Lab Statement: Any lab studies that have been ordered have been reviewed, and results considered in the medical decision making process. - Radiology Chest X-Ray Radiology Interpretation Completed By: ED Physician Summary of Radiographic Findings: Per ED Physician,. no acute process. Pending official report. - CT Chest/ Thorax CTA CT Interpretation Completed By: Radiologist Summary of CT Findings: Per radiologist,. 1. No pulmonary embolus. 2. Linear atelectasis and/or fibrosis in the right middle lobe, left upper. lobe, and lingula. 3. Old granulomatous disease. ED physician has reviewed this imaging report. - EKG 2322 Cardiac Rate: NL - 69 BPM EKG Rhythm: Sinus Rhythm Summary of EKG Findings: NSR at 69 BPM, P waves, QRS complex, and T waves are within normal limits, T waves and intervals are normal, no ischemic changes. This is a normal EKG. 0041 Cardiac Rate: NL - 77 BPM EKG Rhythm: Sinus Rhythm Summary of EKG Findings: NSR at 77 BPM, P waves, QRS complex, and T waves are within normal limits, T waves and intervals are normal, no ischemic changes. This is a normal EKG. Re-Evaluation - Re-Evaluation First Eval Re-Evaluation Time: 22:44 Comment: Pt is feeling better. Chest pain has resolved though she still has some discomfort in the right arm. Her troponin came back slightly elevated but I have had a few initial slight troponin elevations prove to be spurious on reflex retest, and suspect that may be the case here. Before moving further with anticoagulation, etc, will await reflex confirmation. Second Eval Re-Evaluation Time: 23:09 Change: Worse Comment: Chest pain has recurred, and lab informs me that reflex does confirm the troponin elevation. I have put in orders for aspirin, heparin and topical ntg, will continue to reassess and will repeat EKG. Third Eval Re-Evaluation Time: 23:49 Change: Unchanged Comment: Will start IV NTG. Fourth Eval Re-Evaluation Time: 00:22 Change: Improved Comment: Pain is down to a 5 on IV NTG, after morphine. Fifth Eval Re-Evaluation Time: 01:48 Comment: Pain down to a 3, had some epigastric pain in the interim which is improved. Clinical picture is somewhat confusing with slightly elevated but stable troponin, quite atypical pleuritic and palpable chest pain with intermittent radiation to the epigastrium. I have ordered a CTA of the chest to r/o PE or aortic problem. Chest Pain Course/Dx - Course Course Of Treatment: This patient is a 49 year old F presenting to [facility] with a chief complaint of chest pain radiating to right arm and right jaw/neck area with sudden onset one hours ago today 05/18/19. The CC is described as someone crushing sternum really bad and right arm pain described as someone was squeezing her. The patient rates the pain 10/10 in severity at onset and 8/10 currently when staying still but symptoms aggravated by movements. Pt also reports hx gallbladder removal and recent symptoms like her gallbladder was still there for last couple of weeks. Pt reports right upper quadrant pain in abdominal pain. Physical Exam Findings reveals no abnormalities except for tenderness over sternum inferiorly. At 2322 an EKG reveals NSR at 69 BPM, P waves, QRS complex, and T waves are within normal limits, T waves and intervals are normal, no ischemic changes. This is a normal EKG. At 0041 EKG reveals NSR at 77 BPM, P waves, QRS complex, and T waves are within normal limits, T waves and intervals are normal, no ischemic changes. This is a normal EKG. CXR reveals no acute process. Chest/ Thorax CTA reveals. 1. No pulmonary embolus. 2. Linear atelectasis and/or fibrosis in the right middle lobe, left upper. lobe, and lingula. 3. Old granulomatous disease. Test results with no significant abnormalities expect for WBC 12.1 H, Glucose 124 H, Troponin I 0.54 H (at 05/18/19 2213), Troponin I 0.54 H (at 05/19/19 0053), and 0.37 H (at 05/19 at 0409). In the ED course the patient was given 20 mls/hr Heparin Sodium/ Dextrose, 6 mls/hr Nitroglycerin/Dextrose, 30 ml Al Hydrox/Mg Hydrox/ Simethicone PO, 324 mg Aspirin PO, 10 mg Dicyclomine Hcl PO, 50 mg Diphenhydramine Hcl, 40 mg Famotidine, 84 ml Iohexol, 10 mg Ketorolac Tromethamine IV, 15 ml Lidocaine PO, 10 mg Morphine Sulfate IV, 1 inch Nitroglycerin. We discussed patient care with Dr. Gomez, warp changer, and Dr. Sagastume, hospitalist, who accepts patient for admission. Patient will be admitted and is agreeable with this plan. - Diagnoses Provider Diagnoses: Chest pain, Troponin level elevated - Provider Notifications Discussed Care Of Patient With: Arslan Gomez - warp changer Time Discussed With Above Provider: 01:57 Instructed by Provider To: Other - 0704: Dr. Sagastume, hospitalist, accepts pt for admission. Discharge ED - Sign-Out/Discharge Documenting (check all that apply): Patient Departure - admit - Discharge Plan Condition: Improved Disposition: ADMITTED TO [facility] - Billing Disposition and Condition Condition: IMPROVED Disposition: Admitted to [facility] - Attestation Statements Document Initiated by Scribe: Yes Documenting Scribe: Patricia Pepper Provider For Whom Scribe is Documenting (Include Credential): Dr. Mark Oviedo MD Scribe Attestation: Patricia Man, scribed for Dr. Mark Oviedo MD on 05/21/19 at 1836. Scribe Documentation Reviewed: Yes Provider Attestation: The documentation as recorded by the Patricia acharya accurately reflects the service I personally performed and the decisions made by me, Dr. Mark Oviedo MD Status of Scribe Document: Viewed
[2019-05-18 22:20] LABS: ABS Basophils 0.1 10^3/ul (0-0.2); ABS Eosinophils 0.5 10^3/ul (0-0.6); ABS Lymphocytes 4.1 10^3/ul (1.0-4.8); ABS Monocytes 0.8 10^3/ul (0-0.8); ABS Neutrophils 6.7 10^3/ul (1.5-7.7); Eosinophil % 3.7 %; Hematocrit 42 % (35-47); Hemoglobin 14.6 g/dL (12.0-16.0); Lymphocyte % 33.5 %; Mean Corpuscular HGB Conc 35 g/dL (31-36); Mean Corpuscular Hemoglobin 31 pg (27-31); Mean Corpuscular Volume 91 fL (80-97); Mean Platelet Volume 7.8 fL (7.4-10.4); Platelet Count 305 10^3/uL (150-450); Red Blood Count 4.66 10^6 /uL (3.70-4.87); Red Cell Distribution Width 13 % (10-15); White Blood Count 12.1 10^3/uL (3.5-10.8)
[2019-05-18 22:37] LABS: ALT 20 U/L (7-52); AST 17 U/L (13-39); Albumin 4.1 g/dL (3.2-5.2); Albumin/Globulin Ratio 1.4 (1-3); Alkaline Phosphatase 98 U/L (34-104); Anion Gap 6 mmol/L (2-11); BUN/Creatinine Ratio 17.9 (8-20); Blood Urea Nitrogen 14 mg/dL (6-24); CO2 Carbon Dioxide 29 mmol/L (22-32); Calcium 9.6 mg/dL (8.6-10.3); Chloride 105 mmol/L (101-111); EGFR African American 94.6 (>60); EGFR Non-African American 78.2 (>60); Globulin 2.9 g/dL (2-4); Glucose 124 mg/dL (70-100); Potassium 4.1 mmol/L (3.5-5.0); Sodium 140 mmol/L (135-145)
[2019-05-18 22:43] LABS: Troponin I 0.54 ng/mL (<0.04)
[2019-05-18] MEDS ORDERED: Aspirin 81 mg CHEW TAB* 81 MG TAB.CHEW PO ONE (23:08)
[2019-05-18] MEDS ORDERED: Nitro 2% OINT* (Nitroglycerin) 1 INCH/PAK PAK TOPICAL ONE (23:08)
[2019-05-18] MEDS ORDERED: Heparin DRIP 25,000 UNITS(*) 25,000 UNITS/500 ML BAG ONE (23:13)
[2019-05-18] MEDS ORDERED: Heparin VIAL(*) 5000 UNITS/ML VIAL (FIVE THOUSAND) ONE (23:13)
[2019-05-18] MEDS: Heparin DRIP 25,000 UNITS(*) 25,000 UNITS/500 ML BAG IV SCH (23:15)
[2019-05-18] MEDS ORDERED: nitroGLYCERIN DRIP* 25,000 MCG/250 ML BTL IV ONE (23:51)
[2019-05-18] MEDS ORDERED: Morphine 10 MG/ML VIAL (1 ml) IV ONE (23:51)
[2019-05-19] MEDS ORDERED: Morphine 10 MG/ML VIAL (1 ml) IV ONE (00:41)
[2019-05-19] MEDS ORDERED: Famotidine IV* 10 MG/ML 2 ML (20 mg) IV SLOW PU ONE (00:41)
[2019-05-19 01:22] LABS: Troponin I 0.54 ng/mL (<0.04)
[2019-05-19] MEDS ORDERED: diPHENhydraMINE IV* 50 MG/ML 1 ml VIAL (BENADRYL) SLOW PUSH ONE (02:10)
[2019-05-19] MEDS ORDERED: Iohexol 350* (CONTRAST) 500 ML MDV IV ONE (02:53)
[2019-05-19 04:40] LABS: Troponin I 0.37 ng/mL (<0.04)
--- NOTE | 2019-05-19 07:35 | ADMNOTE ---
Subjective Date of Service: 05/19/19 Interval History: ADMISSION HISTORY AND PHYSICAL EXAM: Allergies Allergy/AdvReac Type Severity Reaction Status Date / Time codeine Allergy Headache Verified 05/18/19 22:22 iodine Allergy Rash Verified 05/18/19 22:22 latex Allergy Unknown Verified 05/18/19 22:22 Reaction Details Penicillins Allergy Hives Verified 05/18/19 22:22 Home Medications Medication Instructions Recorded Confirmed Type NK [No Home Medications Reported] 05/18/19 05/18/19 History HPI: The patient was in her usual state of health until about 8:30 PM 05/18/19 when she developed mid-sternal chest pain. 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 About 9:30 the pain suddenly got more sever, radiated to her Right arm and both sides of her neck. No assoc. sx's She had chest pain 10/2016 and had nl troponins and negative nuclear stress test. Family History: Findings - Father of ALL, M alive with hypothyroidism. 1 brother with kidney disease Social History: Findings - , lives with her 2 children. Smokes, no alcohol abuse. 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 SDM is her bravo Munoz. Past Medical History: Findings - Choleycystectomy, R knee arthroscopy x 2 Review of Systems - Measurements Intake and Output: Intake and Output Last 24 Hours 05/17/19 05/18/19 05/19/19 05/20/19 06:59 06:59 06:59 06:59 Weight 250 lb - Review of Systems Constitutional Symptoms: Negative: Weight Gain, Weight Loss, Weakness, Fatigue, Fever, Night Sweats, Unexplained Falls, Other Dermatology: Positive: Normal HEENT: Positive: Normal Eyes: Positive: Normal Thyroid: Positive: Normal Pulmonary: Positive: Normal Cardiology: Positive: Chest Pain Gastroenterology: Positive: Abdominal Pain - Occ RUQ pain with eating Genital - Urinary: Positive: Normal Genitourinay - Female: Positive: Menopause - 1.5 years Musculoskeletal: Negative: Joint Pain, Joint Stiffness, Arthritis, Osteoporosis, Low Back Pain , Sciatica, Joint Deformities, Kyphoscoliosis, Other Endocrinology: Positive: Obesity Hematologic/Lymphatic: Negative: Anemia, Easy Bruising, Hx Leukemia, Hx Lymphoma, Use of Anticoagulant, Use of Antiplatelet Drugs, Other Neurology: Positive: Normal Psychiatry: Positive: Normal Allergic/Immunologic: Negative: Hx Anaphylaxis, Hx Angioedema, Hx Environmental, Hx Seasonal, Asthma, Hx HIV, Immunocompromise, Swollen Glands LymphNodes, Other Objective Active Medications: Heparin Sodium (Porcine) (Heparin Vial(*)) 0 units IV .BOLUS PRN PRN Reason: HEPARIN DRIP PROTOCOL Heparin Sodium/Dextrose (Heparin Drip 25,000 Units(*)) 25,000 units in 500 mls @ 0 mls/hr IV PER RATE [facility]ILIA[facility]; Protocol Last Admin: 05/18/19 23:15 Dose: 20 mls/hr Nitroglycerin/Dextrose (Nitroglycerin Drip*) 25,000 mcg in 250 mls @ 6 mls/hr IV ED ONCE ONE; Protocol Stop: 05/20/19 17:30 Last Admin: 05/19/19 00:11 Dose: 6 mls/hr Vital Signs - 8 hr 05/18/19 05/18/19 05/19/19 23:32 23:43 00:00 Pulse Rate 69 69 74 Respiratory 23 21 26 Rate Blood Pressure 102/63 (mmHg) O2 Sat by Pulse 93 94 93 Oximetry 05/19/19 05/19/19 05/19/19 00:02 00:12 00:32 Pulse Rate 75 74 Respiratory 21 24 21 Rate Blood Pressure 103/61 115/73 (mmHg) O2 Sat by Pulse 93 96 Oximetry 05/19/19 05/19/19 05/19/19 01:00 01:33 02:00 Pulse Rate 72 82 Respiratory 17 27 33 Rate Blood Pressure 102/57 (mmHg) O2 Sat by Pulse 91 94 Oximetry 05/19/19 05/19/19 05/19/19 02:02 02:32 03:00 Pulse Rate 78 83 74 Respiratory 23 18 17 Rate Blood Pressure 110/51 90/72 (mmHg) O2 Sat by Pulse 94 93 97 Oximetry 05/19/19 05/19/19 05/19/19 03:02 04:07 04:09 Pulse Rate 72 68 67 Respiratory 15 18 Rate Blood Pressure 92/57 113/56 (mmHg) O2 Sat by Pulse 97 97 97 Oximetry 05/19/19 05/19/19 05/19/19 04:32 05:00 05:02 Pulse Rate 68 70 68 Respiratory 15 16 15 Rate Blood Pressure 101/61 89/63 (mmHg) O2 Sat by Pulse 92 92 90 Oximetry 05/19/19 05/19/19 05/19/19 05:32 06:00 06:02 Pulse Rate 65 66 Respiratory 16 18 18 Rate Blood Pressure 123/76 106/51 (mmHg) O2 Sat by Pulse 92 92 Oximetry 05/19/19 05/19/19 05/19/19 06:32 07:00 07:02 Pulse Rate 69 69 Respiratory 17 21 22 Rate Blood Pressure 114/58 115/60 (mmHg) O2 Sat by Pulse 94 93 Oximetry Oxygen Devices in Use Now: Nasal Cannula Appearance: Alert, partly up on ED stretcher. In good spirits, looks comfortable. Eyes: No Scleral Icterus Ears/Nose/Mouth/Throat: Clear Oropharnyx, Mucous Membranes Moist Neck: NL Appearance and Movements; NL JVP, No Thyroid Enlargement, Masses Respiratory: Symmetrical Chest Expansion and Respiratory Effort, Clear to Auscultation, Clear to Percussion Cardiovascular: NL Sounds; No Murmurs; No JVD, RRR, No Edema, - - No chest wall tenderness Abdominal: No Hepatosplenomegaly - Obese, soft, mild RUQ tenderness. Nl BS Extremities: No Edema, No Clubbing, Cyanosis, - - No calf tenderness Skin: No Rash or Ulcers, No Nodules or Sclerosis, - Neurological: Alert and Oriented x 3, NL Sensation Result Diagrams: 05/18/19 22:13 05/18/19 22:13 Assess/Plan/Problems-Billing Assessment: - Patient Problems (1) Chest pain Current Visit: No Status: Acute Code(s): R07.9 - CHEST PAIN, UNSPECIFIED SNOMED Code(s): 28871420 Comment: Troponin peaked at 0.54. Despite nl ECG, suspect ACS. Discussed with Dr. Gomez. Echo ordered. Heparin, ASA, BB, statin. (2) Tobacco abuse Current Visit: Yes Status: Acute Code(s): Z72.0 - TOBACCO USE SNOMED Code( s): 276549235 Comment: Pt advised to quit smoking and avoid second hand smoke. Nicotine patch 21 mg/d ordered.
[2019-05-19 09:12] LABS: Activated Partial Thrombo Time 38.1 seconds (26.0-38.0); INR 1.01 (0.82-1.09)
[2019-05-19] MEDS: Heparin VIAL(*) 5000 UNITS/ML VIAL (FIVE THOUSAND) IV PRN ×3 (09:48→23:44)
[2019-05-19] MEDS ORDERED: Perflutren Lipid Microsphere* 3 ML VIAL ONE (11:33)
--- NOTE | 2019-05-19 12:41 | ECHO ---
*[facility]* [place] [address] Fax #: [phone] Transthoracic Echocardiogram Patient: Nena Fairbanks : 1970 Study Date: 05/19/2019 Age: 49 Gender: F HR: 62 bpm Height: 68 in /172.7 cm BSA: 2.25 m^2 Weight: 249.5 lb /113.4 kg BMI: 38 kg/m^2 *Transmission Maintenance Supervisor: * Katie Swift RDCS RN *Referring Physician: * Kian Sagastume *Reading Physician: * Arslan Gomez MD Indications: Myocardial Infarction (new). History: Sleep apnea. Cholecystectomy. Risk factors: Current tobacco use. Obesity. Conclusions Summary: - Left ventricle: The cavity size is normal. Wall thickness is mildly to moderately increased. Systolic function is normal. The estimated ejection fraction is 55-60%. Wall motion is normal; there are no regional wall motion abnormalities. There appears to be septal flattening. There is no consistent Doppler evidence of clinically significant diastolic dysfunction. - Tricuspid valve: There is trace regurgitation. - Pulmonary arteries: Systolic pressure is moderately increased, estimated to be 49 mm Hg. - There is no previous echocardiogram available. Study data: Transthoracic echocardiogram. Procedure: Transthoracic echocardiography was performed. Image quality was fair. The study was technically limited due to body habitus and smoking history. Intravenous Definity 3 ml was administered for image enhancement by Junior Swift RN, RDCS. Complete 2D, spectral Doppler, and color flow Doppler. Location: ICU Patient status: Inpatient. Patient room number: ICU 8. Rhythm: Normal sinus rhythm. Findings Left ventricle: The cavity size is normal. Wall thickness is mildly to moderately increased. Systolic function is normal. The estimated ejection fraction is 55-60%. Wall motion is normal; there are no regional wall motion abnormalities. There appears to be septal flattening. There is no consistent Doppler evidence of clinically significant diastolic dysfunction. Right ventricle: The cavity size is mildly dilated. Systolic function is normal. Left atrium: The atrium is normal in size. Right atrium: The atrium is normal in size. Mitral valve: The leaflets are mildly thickened. There is no evidence of stenosis. There is no significant regurgitation. Aortic valve: Not well visualized. The leaflets are mildly thickened. There is no evidence of stenosis. There is no significant regurgitation. Tricuspid valve: Not well visualized. There is no evidence of stenosis. There is trace regurgitation. Pulmonic valve: Not well visualized. There is no significant regurgitation. Aorta: Ascending aorta: The ascending aorta is not dilated. The aortic root appears normal. Pericardium: There is no pericardial effusion. Pulmonary arteries: Not well visualized. Systolic pressure is moderately increased, estimated to be 49 mm Hg. Systemic veins: Inferior vena cava: The vessel is dilated. There is (< 50%) respiratory change in the IVC dimension. Measurements Left ventricle Value Ref Aortic valve Value Ref CAROL, LAX 5.2 cm 3.8 - 5.2 Winsome diam, ED 2.1 cm ---- ESD, LAX (H) 3.7 cm 2.2 - 3.5 Peak v, S 1.4 m/sec ---- FS, LAX 30 % 27 - 45 VTI, S 30.4 cm ---- PW, ED (H) 1.1 cm 0.6 - 0.9 Mean grad, S 5.0 mm Hg ---- IVS/PW, ED 1.15 Peak grad, S 8.0 mm Hg ---- E', lat winsome, TDI 12.8 cm/sec >=10.0 LVOT/AV, VTI ratio 0.98 --- - E/e', lat winsome, 8 TDI Mitral valve Value Ref E', med winsome, TDI 8.4 cm/sec >=7.0 Peak E 1.04 m/sec --- - E/e', med winsome, 12 Peak A 0.74 m/sec ---- TDI Decel time 201 ms ---- E', avg, TDI 10.6 cm/sec Peak grad, D 4.3 mm Hg ---- E/e', avg, TDI 10 <=14 Peak E/A ratio 1.4 --- - LVOT Value Ref Pulmonic valve Value Ref Peak wenceslao, S 1.43 m/sec Peak v, S 0.94 m/sec ---- VTI, S 29.8 cm Peak grad, S 4.0 mm Hg ---- Peak grad, S 8 mm Hg Mean grad, S 5 mm Hg Tricuspid valve Value Ref Peak RV-RA grad, S 35 mm Hg ---- Ventricular septum Value Ref Max TR wenceslao 2.94 m/sec ---- IVS, ED (H) 1.3 cm 0.6 - 0.9 Aortic root Value Ref Right ventricle Value Ref Root diam 3.2 cm <4.3 CAROL, LAX 3.2 cm CAROL minor ax, A4C (H) 3.8 cm 1.9 - 3.5 Ascending aorta Value Ref mid AAo AP diam, S 3.1 cm ---- Pressure, S 49 mm Hg Aortic arch Value Ref Left atrium Value Ref Arch diam 2.8 cm ---- AP dim, ES 3.50 cm 2.70 - 3.80 Decending aorta Value Ref ML dim, A4C 4.7 cm Wale peak wenceslao 0.77 m/sec ---- SI dim, A4C 5.9 cm Vol/bsa, ES, 1-p 33 ml/m^2 11 - 40 Pulmonary artery Value Ref A4C Pressure, S 49.0 mm Hg ---- Vol/bsa, ES, A/L 25 ml/m^2 16 - 34 Inferior vena cava Value Ref Right atrium Value Ref Diam 2.2 cm ---- ML dim, ES, A4C 4.3 cm 2.6 - 4.4 SI dim, ES, A4C 5.2 cm 3.4 - 5.3 Estimated RAP 15 mm Hg Legend: (L) and (H) trish values outside specified reference range. Prepared and electronically signed by Arslan Gomez MD 05/19/2019 12:41
--- NOTE | 2019-05-19 13:12 | CONS ---
CC: Hospitalist Service; Dr. Gomez * CARDIOLOGY CONSULTATION: DATE OF CONSULT: 05/19/19 HISTORY OF PRESENT ILLNESS: I was asked by hospitalist service to see this 49- year- old female patient, who presented last night to the emergency room with complex symptoms of chest pain and abdominal pain. The patient does have risk factors for coronary artery disease including obesity, current tobacco consumption, unknown cholesterol status, and possible sleep apnea. The patient said she had history of cholecystectomy in 2009. Three weeks ago, she had been having right upper quadrant abdominal pain and diffuse abdominal pain. Yesterday, while she was driving to her work at about 8 p.m. last night, she did develop sudden onset of chest pain and then left-sided chest pain, then arm pain. Her symptoms are complex including heaviness, but also some tenderness some time with deep breath, some time with change in position. She did receive aspirin in the emergency room and nitro patch; however, IV nitroglycerin was started and she said it does help and she feels better on the IV nitro. She was started on heparin, statins, beta-stephani. Cardiology consult was further requested because of her troponins did come abnormal actually. So, the troponin at 2213 last night was 0.54, the second one at 12:53 a.m. 0.54, the third one at 4:09 a.m. today 0.37. She is still having complex diffuse pain including right upper quadrant abdominal pain and some chest pain. Her EKGs were without definite ST elevations. They were compared to the EKGs from before actually 2017. There is some nondiagnostic Q wave in V1 and R. There are very subtle maybe ST depressions appreciated, but definitely nothing of significance ST-T abnormalities were identified. She had a CT of the chest that showed there is no pulmonary embolism. She gives no fever, no chills, no acute viral or bacterial illness according to her, no nausea, no vomiting, no hematochezia, no skin rash. She felt fluttering in the chest last night. No tachycardia, no swelling in the lower extremities, no orthopnea is appreciated. REVIEW OF SYSTEMS: Her review of all other systems essentially is negative. PHYSICAL EXAM: On exam, she had diffuse complex pains in the abdomen as well as in the chest, some of with tenderness is appreciated. Vitals showed the following: Blood pressure 110/62; pulse 69, sinus rhythm; she is afebrile; respiratory rate 20. Head and Neck Exam: Ears, nose, and throat essentially benign. Neck is supple. JVP is not elevated. No carotid bruits. No masses in the neck are appreciated. Chest: Clear to auscultation. No rales, no wheeze. No added sounds. Heart: Normal S1, S2. No added sounds. No gallops , no rubs. Abdomen: Tenderness in the right upper quadrant. Obese. Positive bowel sounds. Extremities: No edema, no cyanosis, no clubbing. Skin exam is normal. Psych: Normal affect and mood. 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 DIAGNOSTIC STUDIES/LAB DATA: White blood cell 12.1, hemoglobin 14.6, hematocrit 42, platelets 305. Her chemistry showed sodium 140, potassium 4.1, chloride 105, total CO2 of 29, BUN 14, creatinine 0.78. LFTs normal. Troponin 0.54, then 0.54, then 0.37. IMPRESSION: The patient is a 49-year-old female with: 1. Vague complex symptoms of chest pain, abdominal pain with abnormal troponin , ruled in by troponin and her symptoms for pxf-AN-aasklvctd myocardial infarction. 2. Abnormal troponin as described. 3. Current tobacco consumption. 4. Obesity. 5. Nonspecific EKG abnormality without definite abnormal significant ST-T changes. 6. Unknown cholesterol status. 7. Family history of coronary artery disease, although was not premature. PLAN: I have discussed this with Dr. Sagastume from the hospitalist service. She does have risk factors for coronary artery disease. Cardiac catheterization will be the definite test to evaluate if she has truly coronary artery disease and ischemia. Based on her symptoms, abnormal troponin, this is recommended. I discussed with her benefits, risks. She is willing to proceed. This will be scheduled in the near future. Definitely, her clinical condition will be observed very closely for any change in her symptoms or EKG abnormalities or hemodynamics. Meanwhile, I agree with your treatment with aspirin, heparin, beta -stephani, IV nitro, and statin. We will evaluate the echo. The echo is in progress at the present time for left ventricular systolic function, wall motion , valvular disease, pericarditis, pericardial effusion, and we will make further recommendations accordingly. I answered all her concerns and questions up to her satisfaction. TIME SPENT: More than half of at least 60 to 65-plus minutes was in the education and counseling mode, observing the above and making further recommendations. [id number]/[facility] #: [id number] JOHN
[2019-05-19 16:29] LABS: Albumin 3.5 g/dL (3.2-5.2); Albumin/Globulin Ratio 1.4 (1-3); Globulin 2.5 g/dL (2-4); Indirect Bilirubin 0.3 mg/dL (0.3-1.0); Total Bilirubin 0.4 mg/dL (0.2-1.0)
[2019-05-19] MEDS: Aspirin 81 mg CHEW TAB* 81 MG TAB.CHEW PO SCH (16:47)
[2019-05-19] MEDS: Metoprolol Tartrate TAB* 25 MG PO SCH ×2 (16:47→20:48)
[2019-05-19] MEDS: Nicotine PATCH 21 MG/24 HR* PATCH TRANSDERM SCH (16:48)
[2019-05-19] MEDS: Atorvastatin* 80 MG TAB PO SCH ×2 (16:57→19:51)
[2019-05-19 20:17] LABS: Troponin I 0.19 ng/mL (<0.04)
[2019-05-19] MEDS: Heparin DRIP 25,000 UNITS(*) 25,000 UNITS/500 ML BAG IV SCH (21:07)
[2019-05-20 06:10] LABS: ABS Basophils 0.1 10^3/ul (0-0.2); ABS Eosinophils 0.5 10^3/ul (0-0.6); ABS Lymphocytes 2.6 10^3/ul (1.0-4.8); ABS Monocytes 0.4 10^3/ul (0-0.8); ABS Neutrophils 3.7 10^3/ul (1.5-7.7); Eosinophil % 6.6 %; Hematocrit 41 % (35-47); Lymphocyte % 36.4 %; Mean Corpuscular HGB Conc 34 g/dL (31-36); Mean Corpuscular Hemoglobin 31 pg (27-31); Mean Corpuscular Volume 91 fL (80-97); Mean Platelet Volume 7.9 fL (7.4-10.4); Nucleated Red Blood Cells % 0.2; Platelet Count 237 10^3/uL (150-450); Red Blood Count 4.54 10^6 /uL (3.70-4.87); Red Cell Distribution Width 13 % (10-15); White Blood Count 7.2 10^3/uL (3.5-10.8)
[2019-05-20 06:24] LABS: BUN/Creatinine Ratio 11.3 (8-20); Calcium 8.8 mg/dL (8.6-10.3); EGFR African American 123.3 (>60); EGFR Non-African American 101.9 (>60)
[2019-05-20] MEDS: Heparin VIAL(*) 5000 UNITS/ML VIAL (FIVE THOUSAND) IV PRN (06:56)
[2019-05-20] MEDS ORDERED: methylPREDNISolone SOD 40 MG* 1 ML VIAL IV ONE ×2 (08:39→11:00)
[2019-05-20] MEDS ORDERED: methylPREDNISolone 125 MG* 2 ML VIAL IV ONE (08:39)
[2019-05-20] MEDS ORDERED: diPHENhydraMINE IV* 50 MG/ML 1 ml VIAL (BENADRYL) SLOW PUSH PRN (08:41)
[2019-05-20] MEDS ORDERED: Diazepam TAB(*) 5 MG PO PRN (08:41)
[2019-05-20] MEDS ORDERED: NS 0.9% 1000 ML** 1,000 ML IV SCH (08:45)
--- NOTE | 2019-05-20 08:50 | PN ---
Subjective Date of Service: 05/20/19 - Troponin elevation Interval History: c/o substernal chest pain radiating down right arm into right jaw intermittently x24 hours. Occurred after physically holding a patient( weighed 150lbs) upright for 30 minutes yesterday. Last episode was while walking to toilet this morning around 0600. Reports h/o SOB with contrast dye( Prior CT). 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 Pre medication with Famotidine and Benadryl and tolerated well. 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 Heparin Sodium (Porcine) (Heparin Vial(*)) 0 units IV .BOLUS PRN PRN Reason: HEPARIN DRIP PROTOCOL Last Admin: 05/20/19 06:56 Dose: 4,000 units Heparin Sodium/Dextrose (Heparin Drip 25,000 Units(*)) 25,000 units in 500 mls @ 0 mls/hr IV PER RATE [facility]; Protocol Last Admin: 05/19/19 21:07 Dose: 30 mls/hr Nitroglycerin/Dextrose (Nitroglycerin Drip*) 25,000 mcg in 250 mls @ 6 mls/hr IV ED ONCE ONE; Protocol Stop: 05/20/19 17:30 Last Admin: 05/19/19 00:11 Dose: 6 mls/hr Sodium Chloride (Ns 0.9% 1000 Ml) 1,000 mls @ 100 mls/hr IV .per rate [facility] Methylprednisolone Sodium Succinate (Solu-Medrol 125mg *) 40 mg IV ONCE ONE Stop: 05/20/19 08:40 Metoprolol Tartrate (Lopressor Tab*) 25 mg PO BID [facility] Last Admin: 05/19/19 20:48 Dose: 25 mg Nicotine (Nicotine Patch 21 Mg/24 Hr*) 1 patch TRANSDERM DAILY@0800 [facility] Last Admin: 05/19/19 16:48 Dose: Not Given Objective Vital Signs: Temp Pulse Resp BP Pulse Ox 98.4 F 68 23 136/85 95 05/20/19 07:22 05/20/19 07:00 05/20/19 07:00 05/20/19 07:00 05/20/19 07:00 Oxygen Devices in Use Now: Nasal Cannula Appearance: Sitting on edge of bed, NAD. Cooperative. A+O x3 Ears/Nose/Mouth/Throat: NL Teeth, Lips, Gums, Clear Oropharnyx, Mucous Membranes Moist Neck: NL Appearance and Movements; NL JVP, Trachea Midline Respiratory: Symmetrical Chest Expansion and Respiratory Effort, Clear to Auscultation Cardiovascular: NL Sounds; No Murmurs; No JVD, No Edema Abdominal: NL Sounds; No Tenderness; No Distention Extremities: No Edema Skin: No Rash or Ulcers Neurological: Alert and Oriented x 3 Lines/Tubes/Other Access: Clean, Dry and Intact Peripheral IV Laboratory Results: 05/20/19 05:59 05/20/19 05:59 INR (Anticoag Therapy) 1.01 (0.82-1.09) 05/19/19 08:56 APTT 33.1 seconds (26.0-38.0) 05/20/19 05:59 Total Bilirubin 0.40 mg/dL (0.2-1.0) 05/19/19 16:00 Direct Bilirubin 0.10 mg/dL (0.03-0.18) 05/19/19 16:00 Indirect Bilirubin 0.3 mg/dL (0.3-1.0) 05/19/19 16:00 AST 34 U/L (13-39) 05/19/19 16:00 ALT 44 U/L (7-52) 05/19/19 16:00 Alkaline Phosphatase 90 U/L (34-104) 05/19/19 16:00 Total Protein 6.0 g/dL (6.4-8.9) L 05/19/19 16:00 Albumin 3.5 g/dL (3.2-5.2) 05/19/19 16:00 Globulin 2.5 g/dL (2-4) 05/19/19 16:00 Albumin/Globulin Ratio 1.4 (1-3) 05/19/19 16:00 05/18/19 05/19/19 05/19/19 22:13 00:53 04:09 Troponin I 0.54 H* 0.54 H* 0.37 H* 05/19/19 19:49 Troponin I 0.19 H* Laboratory Results - last 24 hr 05/19/19 05/19/19 05/19/19 08:56 16:00 16:00 WBC RBC Hgb Hct MCV MCH MCHC RDW Plt Count MPV Neut % (Auto) Lymph % (Auto) [place] % (Auto) Eos % (Auto) Baso % (Auto) Absolute Neuts (auto) Absolute Lymphs (auto) Absolute Monos (auto) Absolute Eos (auto) Absolute Basos (auto) Absolute Nucleated RBC Nucleated RBC % INR (Anticoag Therapy) 1.01 APTT 38.1 H 51.5 H Sodium Potassium Chloride Carbon Dioxide Anion Gap BUN Creatinine Est GFR ( Amer) Est GFR (Non-Af Amer) BUN/Creatinine Ratio Glucose Calcium Total Bilirubin 0.40 Direct Bilirubin 0.10 Indirect Bilirubin 0.3 AST 34 ALT 44 Alkaline Phosphatase 90 Troponin I Total Protein 6.0 L Albumin 3.5 Globulin 2.5 Albumin/Globulin Ratio 1.4 Amylase 14 L Lipase 24 05/19/19 05/19/19 05/20/19 19:49 23:17 05:59 WBC 7.2 RBC 4.54 Hgb 14.0 Hct 41 MCV 91 MCH 31 MCHC 34 RDW 13 Plt Count 237 MPV 7.9 Neut % (Auto) 50.6 Lymph % (Auto) 36.4 [place] % (Auto) 5.5 Eos % (Auto) 6.6 Baso % (Auto) 0.9 Absolute Neuts (auto) 3.7 Absolute Lymphs (auto) 2.6 Absolute Monos (auto) 0.4 Absolute Eos (auto) 0.5 Absolute Basos (auto) 0.1 Absolute Nucleated RBC 0.0 Nucleated RBC % 0.2 INR (Anticoag Therapy) APTT 53.6 H Sodium Potassium Chloride Carbon Dioxide Anion Gap BUN Creatinine Est GFR ( Amer) Est GFR (Non-Af Amer) BUN/Creatinine Ratio Glucose Calcium Total Bilirubin Direct Bilirubin Indirect Bilirubin AST ALT Alkaline Phosphatase Troponin I 0.19 H* Total Protein Albumin Globulin Albumin/Globulin Ratio Amylase Lipase 05/20/19 05/20/19 05:59 05:59 WBC RBC Hgb Hct MCV MCH MCHC RDW Plt Count MPV Neut % (Auto) Lymph % (Auto) [place] % (Auto) Eos % (Auto) Baso % (Auto) Absolute Neuts (auto) Absolute Lymphs (auto) Absolute Monos (auto) Absolute Eos (auto) Absolute Basos (auto) Absolute Nucleated RBC Nucleated RBC % INR (Anticoag Therapy) APTT 33.1 Sodium 137 Potassium 4.0 Chloride 105 Carbon Dioxide 26 Anion Gap 6 BUN 7 Creatinine 0.62 Est GFR ( Amer) 123.3 Est GFR (Non-Af Amer) 101.9 BUN/Creatinine Ratio 11.3 Glucose 141 H Calcium 8.8 Total Bilirubin Direct Bilirubin Indirect Bilirubin AST ALT Alkaline Phosphatase Troponin I Total Protein Albumin Globulin Albumin/Globulin Ratio Amylase Lipase Diagnostic Imaging: *[facility]* [place] [address] Fax #: [phone] Transthoracic Echocardiogram Patient: Nena Fairbanks : 1970 Study Date: 05/19/2019 Age: 49 Gender: F HR: 62 bpm Height: 68 in /172.7 cm BSA: 2.25 m^2 Weight: 249.5 lb /113.4 kg BMI: 38 kg/m^2 *Sleeve Machine Tender: * Katie Swift RDCS RN *Referring Physician: * Kian Sagastume *Reading Physician: * Arslan Gomez MD Indications: Myocardial Infarction (new). History: Sleep apnea. Cholecystectomy. Risk factors: Current tobacco use. Obesity. Conclusions Summary: - Left ventricle: The cavity size is normal. Wall thickness is mildly to moderately increased. Systolic function is normal. The estimated ejection fraction is 55-60%. Wall motion is normal; there are no regional wall motion abnormalities. There appears to be septal flattening. There is no consistent Doppler evidence of clinically significant diastolic dysfunction. - Tricuspid valve: There is trace regurgitation. - Pulmonary arteries: Systolic pressure is moderately increased, estimated to be 49 mm Hg. - There is no previous echocardiogram available. Study data: Transthoracic echocardiogram. Procedure: Transthoracic echocardiography was performed. Image quality was fair. The study was technically limited due to body habitus and smoking history. Intravenous Definity 3 ml was administered for This report is only to be considered final once signed by the Provider(s) as displayed in the "<Electronically Signed by >" field (s). Absence of a signature indicates the report is in a draft status and still needs to be finalized. In the event this document was created by someone other than the signing Provider, the individual initiating the document will be listed in the "Entered by:" or "Dictated by:" handy. EKG Data: 05/19/2019; Sinus rhythm rate 71. Non specific TW changes in V1-2. No ST changes. Telemetry reviewed. Sinus rhythm rate 60-70 Assessment/Plan #1 c/p Chest pain with troponin elevation. Troponin peaked at .54 on 2018. She states intermittent chest pain occurred for 24 hours after physically holding patient ( weighed 150lbs) upright. Had a repeat episode at 0600 while walking to toilet. She is on IV heparin and NTG therapy. Risk factors = ZAMORA, ongoing tobacco abuse. Non specific TW changes no clear ST abnormalities. LVEF 55-60% with normal wall motion noted on echo. She has a report contrast dye allergy. Will pre medicate with IV Solu-Medrol and Benedryl. She tolerated CTA chest last night to r/o PE. Will not do LV gram given LVEF was normal and to reduce dye load. Denies h/o bleeding complications, CVA, TIA. She was able to lay flat on back with no difficulty in breathing. Plan is [facility] today. Proceed was reviewed with patient including risk vs. benefits that include but are not limited to; bleeding, infection, vessel damage, CVA, PR, . Patient is agreeable to proceeding. Consent to be obtained by Dr. Keny Aldana. IV fluids ordered in preparation for procedure. * h/o Lexiscan in 2017 due to similar symptoms per report normal perfusion. #2 ? ZAMORA noted on prior sonogram. Differ to primary team. Denies h/o ETOH abuse likely due to morbid obesity. #3 h/o RUI; wears CPAP. Encourage weight loss. #4 Unknown Cholesterol status; will update lipid panel . #5 Disposition pending course. Will d/w Dr. Aldana.
[2019-05-20] MEDS: Nicotine PATCH 21 MG/24 HR* PATCH TRANSDERM SCH (08:59)
[2019-05-20] MEDS: Metoprolol Tartrate TAB* 25 MG PO SCH ×2 (09:03→21:05)
[2019-05-20] MEDS: Aspirin 81 mg CHEW TAB* 81 MG TAB.CHEW PO SCH (09:03)
--- NOTE | 2019-05-20 09:49 | PN ---
Subjective Date of Service: 05/20/19 Interval History: throbbing pain in right arm and substernal pain returned with walking to rest room this AM. Thought nitro gtt did not help and might have worsened (has been off since yesterday). RUQ abdominal pain intermittently for last 2 weeks. worse with fatty foods. made nauseous but no vomiting. s/p tanner 2009 some white frothy cough, occasional SOB. wants to quit smoking. BMs usually loose and frequent since tanner. never colonoscopy. Family History: Findings - Father of ALL, M alive with hypothyroidism. 1 brother with kidney disease Social History: Findings - , lives with her 2 children. Smokes, no alcohol abuse. 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 SDM is her bravo Munoz. Past Medical History: Findings - Choleycystectomy, R knee arthroscopy x 2 Objective Active Medications: Aspirin (Aspirin 81 Mg Chew Tab*) 81 mg PO DAILY [facility] Last Admin: 05/20/19 09:03 Dose: 81 mg Atorvastatin Calcium (Lipitor*) 80 mg PO 1700 [facility] Last Admin: 05/19/19 19:51 Dose: Not Given Diazepam (Valium Tab(*)) 2.5 mg PO ONCE PRN PRN Reason: director call to Home Visitor Stop: 05/20/19 23:59 Diphenhydramine HCl (Benadryl Iv*) 50 mg SLOW PUSH ONCE PRN PRN Reason: director call to Home Visitor Stop: 05/20/19 23:59 Heparin Sodium (Porcine) (Heparin Vial(*)) 0 units IV .BOLUS PRN PRN Reason: HEPARIN DRIP PROTOCOL Last Admin: 05/20/19 06:56 Dose: 4,000 units Heparin Sodium/Dextrose (Heparin Drip 25,000 Units(*)) 25,000 units in 500 mls @ 0 mls/hr IV PER RATE LILIANA; Protocol Last Admin: 05/19/19 21:07 Dose: 30 mls/hr Nitroglycerin/Dextrose (Nitroglycerin Drip*) 25,000 mcg in 250 mls @ 6 mls/hr IV ED ONCE ONE; Protocol Stop: 05/20/19 17:30 Last Admin: 05/19/19 00:11 Dose: 6 mls/hr Sodium Chloride (Ns 0.9% 1000 Ml) 1,000 mls @ 100 mls/hr IV .per rate [facility] Methylprednisolone Sodium Succinate (Solu-Medrol 40 Mg) 80 mg IV ONCE ONE Stop: 05/21/19 09:20 Metoprolol Tartrate (Lopressor Tab*) 25 mg PO BID [facility] Last Admin: 05/20/19 09:03 Dose: 25 mg Nicotine (Nicotine Patch 21 Mg/24 Hr*) 1 patch TRANSDERM DAILY@0800 [facility] Last Admin: 05/20/19 08:59 Dose: 1 patch Vital Signs - 8 hr 05/20/19 05/20/19 05/20/19 02:00 02:01 03:00 Temperature Pulse Rate 71 78 Respiratory 15 24 21 Rate Blood Pressure 146/90 141/80 (mmHg) O2 Sat by Pulse 98 92 Oximetry 05/20/19 05/20/19 05/20/19 03:58 04:01 05:00 Temperature 97 F Pulse Rate 57 Respiratory 18 17 22 Rate Blood Pressure 116/65 (mmHg) O2 Sat by Pulse 94 Oximetry 05/20/19 05/20/19 05/20/19 05:01 06:00 06:02 Temperature Pulse Rate 62 66 Respiratory 21 29 22 Rate Blood Pressure 117/67 122/82 (mmHg) O2 Sat by Pulse 97 95 Oximetry 05/20/19 05/20/19 05/20/19 07:00 07:22 08:07 Temperature 98.4 F Pulse Rate 68 Respiratory 23 12 Rate Blood Pressure 136/85 (mmHg) O2 Sat by Pulse 95 Oximetry Oxygen Devices in Use Now: None Appearance: NAD Eyes: No Scleral Icterus Ears/Nose/Mouth/Throat: NL Teeth, Lips, Gums Neck: NL Appearance and Movements; NL JVP Respiratory: Symmetrical Chest Expansion and Respiratory Effort, Clear to Auscultation Cardiovascular: NL Sounds; No Murmurs; No JVD, RRR Abdominal: - - soft, RUQ tenderness to palpation, obese. no reboun or guarding Extremities: - - trace edema left leg Skin: No Rash or Ulcers Neurological: Alert and Oriented x 3 Nutrition: Taking PO's Result Diagrams: 05/20/19 05:59 05/20/19 05:59 Additional Lab and Data: Laboratory Results - last 24 hr 05/19/19 05/19/19 05/19/19 16:00 16:00 19:49 WBC RBC Hgb Hct MCV MCH MCHC RDW Plt Count MPV Neut % (Auto) Lymph % (Auto) Bleckley % (Auto) Eos % (Auto) Baso % (Auto) Absolute Neuts (auto) Absolute Lymphs (auto) Absolute Monos (auto) Absolute Eos (auto) Absolute Basos (auto) Absolute Nucleated RBC Nucleated RBC % APTT 51.5 H Sodium Potassium Chloride Carbon Dioxide Anion Gap BUN Creatinine Est GFR ( Amer) Est GFR (Non-Af Amer) BUN/Creatinine Ratio Glucose Calcium Total Bilirubin 0.40 Direct Bilirubin 0.10 Indirect Bilirubin 0.3 AST 34 ALT 44 Alkaline Phosphatase 90 Troponin I 0.19 H* Total Protein 6.0 L Albumin 3.5 Globulin 2.5 Albumin/Globulin Ratio 1.4 Amylase 14 L Lipase 24 05/19/19 05/20/19 05/20/19 23:17 05:59 05:59 WBC 7.2 RBC 4.54 Hgb 14.0 Hct 41 MCV 91 MCH 31 MCHC 34 RDW 13 Plt Count 237 MPV 7.9 Neut % (Auto) 50.6 Lymph % (Auto) 36.4 Bleckley % (Auto) 5.5 Eos % (Auto) 6.6 Baso % (Auto) 0.9 Absolute Neuts (auto) 3.7 Absolute Lymphs (auto) 2.6 Absolute Monos (auto) 0.4 Absolute Eos (auto) 0.5 Absolute Basos (auto) 0.1 Absolute Nucleated RBC 0.0 Nucleated RBC % 0.2 APTT 53.6 H Sodium 137 Potassium 4.0 Chloride 105 Carbon Dioxide 26 Anion Gap 6 BUN 7 Creatinine 0.62 Est GFR ( Amer) 123.3 Est GFR (Non-Af Amer) 101.9 BUN/Creatinine Ratio 11.3 Glucose 141 H Calcium 8.8 Total Bilirubin Direct Bilirubin Indirect Bilirubin AST ALT Alkaline Phosphatase Troponin I Total Protein Albumin Globulin Albumin/Globulin Ratio Amylase Lipase 05/20/19 05:59 WBC RBC Hgb Hct MCV MCH MCHC RDW Plt Count MPV Neut % (Auto) Lymph % (Auto) Bleckley % (Auto) Eos % (Auto) Baso % (Auto) Absolute Neuts (auto) Absolute Lymphs (auto) Absolute Monos (auto) Absolute Eos (auto) Absolute Basos (auto) Absolute Nucleated RBC Nucleated RBC % APTT 33.1 Sodium Potassium Chloride Carbon Dioxide Anion Gap BUN Creatinine Est GFR ( Amer) Est GFR (Non-Af Amer) BUN/Creatinine Ratio Glucose Calcium Total Bilirubin Direct Bilirubin Indirect Bilirubin AST ALT Alkaline Phosphatase Troponin I Total Protein Albumin Globulin Albumin/Globulin Ratio Amylase Lipase Microbiology and Other Data: Microbiology 05/19/19 09:35 Nasal Nasal Screen MRSA (PCR) - Final Mrsa Not Detected Assess/Plan/Problems-Billing Assessment: 49 yo female PMH super morbid obesity, RUI on CPAP, smoker p/w right arm and substernal chest pain. NSTEMI. Awaiting cath. - Patient Problems (1) Chest pain Current Visit: No Status: Acute Code(s): R07.9 - CHEST PAIN, UNSPECIFIED SNOMED Code(s): 46706193 Comment: Troponin peaked at 0.54. EKG with TWI laterally. Appreciate cardiology recs, planned LHC with Dr. Marte around 1300 today. Echo w/o wma. EF 55-60% Heparin gtt , ASA 81mg, metoprolol tartrate 25mg po BID, atorvastatin 80mg. somewhat exertional. also RUQ abdominal pain for 2 weeks. Add on lipid panel and A1c to AM labs. (2) RUI on CPAP Current Visit: Yes Status: Acute Code(s): G47.33 - OBSTRUCTIVE SLEEP APNEA ( ADULT) (PEDIATRIC); Z99.89 - DEPENDENCE ON OTHER ENABLING MACHINES AND DEVICES SNOMED Code(s): 52626024 (3) Abdominal pain Current Visit: Yes Status: Acute Code(s): R10.9 - UNSPECIFIED ABDOMINAL PAIN SNOMED Code(s): 34163478 Comment: lipase wnl add on lipid panel to evaluate trigyceride levels. 2 weeks intermittent, worse with fatty food. Liver US with fatty infiltrate, hepatomegaly. LFTs wnl. BMs chronically loose, frequent since tanner in 2009. consider loperimide trial. recommend GI and due for colonoscopy as outpatient (never had, age 49). (4) Hyperglycemia Current Visit: Yes Status: Acute Code(s): R73.9 - HYPERGLYCEMIA, UNSPECIFIED SNOMED Code(s): 94944173 Comment: add on A1C to AM labs. (5) Loose bowel movements Current Visit: Yes Status: Acute Code(s): R19.5 - OTHER FECAL ABNORMALITIES SNOMED Code(s): 413430388 Comment: plan as above (6) Tobacco abuse Current Visit: Yes Status: Acute Code(s): Z72.0 - TOBACCO USE SNOMED Code( s): 347646736 Comment: Pt advised to quit smoking and avoid second hand smoke. continue Nicotine patch 21 mg/d (7) Leukocytosis Current Visit: Yes Status: Acute Code(s): D72.829 - ELEVATED WHITE BLOOD CELL COUNT, UNSPECIFIED SNOMED Code(s): 698950085 Comment: resolved. Hx of elevated ESR many years ago. add on CRP, ESR to am labs Status and Disposition: medicine inpatient, awaiting [facility].
[2019-05-20 10:19] LABS: C Reactive Protein 8.96 mg/L (<8.01)
[2019-05-20] MEDS ORDERED: fentaNYL* 50 MCG/ML 2 ML VIAL (100 MCG VIAL) ONE (10:29)
[2019-05-20] MEDS ORDERED: VERAPAMIL 2.5 MG/ML 2 ML VIAL ** 5 mg/2 ml ONE (10:29)
[2019-05-20] MEDS ORDERED: Midazolam* 1 MG/ML 5 ML VIAL (5 MG) ONE (10:29)
[2019-05-20] MEDS ORDERED: Heparin(*) 1000 UNIT/ML 10 ML VIAL CATH LAB IV ONE (10:29)
[2019-05-20] MEDS ORDERED: Lidocaine 1% INJ* 10 MG/ML 30 ML SDV ONE (10:30)
[2019-05-20] MEDS ORDERED: nitroGLYCERIN DRIP* 25,000 MCG/250 ML BTL ONE (10:30)
[2019-05-20] MEDS ORDERED: Heparin 2 UNITS/ML IVPREMIX* 2,000 ML IV ONE (10:30)
[2019-05-20] MEDS ORDERED: Iohexol 350 (CONTRAST) 200 ML MDV IV ONE (10:30)
[2019-05-20 11:21] LABS: Erythrocyte Sed Rate 21 mm/Hr (0-29)
[2019-05-20] MEDS ORDERED: Acetaminophen TAB* 325 MG PO PRN (11:28)
--- NOTE | 2019-05-20 12:38 | CATH ---
"*[facility]* [place] [address] Main: [phone] [email or web address] Cardiac Catheterization Patient: Nena Fairbanks : 1970 Study Date: 05/20/2019 Age: 49 Gender: F HR: Height: 67 in /170.2 cm BSA: 2.63 m^2 Weight: 304 lb /138.2 kg BMI: 47.7 kg/m^2 Starchmaker: Grayson Aldana MD Ordering Physician: Arslan Gomez Referring Physician: Arslan Gomez, - Left coronary angiography. - Right coronary angiography. Summary: Normal coronary arteries. Recommendations: Typical chest pain Abnormal troponin and EKG changes. Normal left ventricle function on echocardiogram. Unclear etiology of chest pain and abnormal tropinin. Could be vasospasm. History: Risk factors: Current tobacco use. Medications: The patient received no antianginal therapy in the last two weeks. Labs, prior tests, procedures, and surgery: Blood tests: Troponin I (pre-procedure) of 0.19 ng/ml. International normalized ratio (INR) of 1.01. Partial thromboplastin time (PTT) of 33.1 sec. Serum potassium (K) of 4 mEq/l. Serum sodium (Na) of 137 mEq/l. Serum creatinine (current admission) of 0.62 mg/dl. Blood urea nitrogen of 7 mg/dl. Glucose of 141 mg/dl. Platelet count of 237 th/ul. White blood cell count (WBC) of 0.01 th/ul. Red blood cell count (RBC) of 4540 th/ul. Hematocrit of 41 %. Hemoglobin (pre-procedure) of 14 g/dl. Study data: Study status: Cardiac cath: urgent. Location: Catheterization laboratory. Consent: The risks, benefits, and alternatives to the procedure were explained to the patient and/or their healthcare fulfillment representative and written informed consent was obtained. All available pre-procedure labs were reviewed. Height: 170.2 cm. 67 in. Weight: 138.2 kg. 304 lb. Body surface area: 2.63 m^2. Body mass index: 47.7 kg/m^2. Procedure: 1. Initial setup. The patient was brought to the laboratory. Surface ECG leads, blood pressure measurements, and pulse oximetric signals were monitored. A baseline seven lead ECG was recorded. A time out was observed per protocol. 2. Skin preparation. The planned puncture sites were prepped and draped in the usual sterile manner. 3. Local anesthesia. 1% lidocaine was administered. 4. Supplemental oxygen. Oxygen, 2 L/min was administered throughout the procedure. 5. Local anesthesia. 1% lidocaine (1 ml) was administered. 6. Right radial artery access. A 6F Glidesheath Slender sheath was advanced into the vessel. 7. Supplemental oxygen. Oxygen, 4 L/min was administered throughout the procedure. 8. Selective left coronary angiography. A 5F TIG 4.0 catheter was advanced into the left coronary vessel ostium under fluoroscopic guidance. Contrast was injected. Images were obtained in multiple projections. 9. Selective right coronary angiography. A 5F TIG 4.0 catheter was advanced into the right coronary vessel ostium under fluoroscopic guidance. Contrast was injected. Images were obtained in multiple projections. 10. Right radial artery hemostasis. Vessel closure was achieved with a Regular Vasc Band device. Study completion: Minimal estimated blood loss. All catheters inserted during the procedure were removed. There were no apparent complications. Administered medications: Aspirin, 81mg, PO. Heparin, 4,000units, IV. Heparin, infusion, at a rate of 2,000units/hr, IV was discontinued. VALIUM (Diazepam), 2.5mg, PO. BENADRYL (Diphenhydramine), 50mg, PO. Methylprednisolone, 40mg. VERSED (Midazolam), 1mg, IV. Fentanyl, 25mcg, IV. (Radial) Nitroglycerin, 300mcg, intra-arterially. (Radial) Verapamil, 3mg, intra-arterially. NaCl 0.9% , infusion , at a rate of 100 ml/hr. Contrast: Omnipaque 350 50 ml (total dose). Omnipaque 350 150 ml (wasted). Radiation: Fluoroscopy dose: 136.4 cGy. Discharge: The patient tolerated the procedure well and was discharged from the lab in stable condition. Findings Coronary arteries: The coronary circulation is right dominant. Left main: Normal, 0% stenosis. LAD: Normal, 0% stenosis. Left circumflex: Normal, 0% stenosis. Right coronary: Normal, 0% stenosis. Hemodynamics: + + + |Stage description |Condition 1 -| + + + |Arterial pressure s/d (m)|120/79 (98) | + + + Prepared and electronically signed by Grayson Aldana MD 05/20/2019 12:37"
[2019-05-20] MEDS: Atorvastatin* 80 MG TAB PO SCH (17:28)
[2019-05-21 04:38] LABS: BUN/Creatinine Ratio 13.6 (8-20); Calcium 9.4 mg/dL (8.6-10.3); EGFR African American 130.5 (>60); EGFR Non-African American 107.9 (>60); Potassium 3.9 mmol/L (3.5-5.0)
[2019-05-21] MEDS: Aspirin 81 mg CHEW TAB* 81 MG TAB.CHEW PO SCH (08:34)
[2019-05-21] MEDS: Metoprolol Tartrate TAB* 25 MG PO SCH (08:34)
[2019-05-21 08:58] LABS: HDL Cholesterol 50.4 mg/dL
[2019-05-21] MEDS ORDERED: methylPREDNISolone SOD 40 MG* 1 ML VIAL IV ONE (09:19)
[2019-05-21 10:25] VITALS: BP 120/64
[2019-05-21] MEDS ORDERED: Simethicone TAB* 80 MG TAB.CHEW PO ONE (11:22)
--- NOTE | 2019-05-22 01:38 | DS ---
DISCHARGE SUMMARY: DATE OF ADMISSION: 05/19/19 DATE OF DISCHARGE: 05/21/19 CHIEF COMPLAINT: Right arm pain, chest pain, right upper quadrant pain. PRINCIPAL DIAGNOSES: 1. Vnc-LF-juxclha elevation myocardial infarction, was found to have nonobstructive coronary arteries; right upper quadrant pain. 2. New diagnosis of diabetes mellitus type 1. 3. Hypertensive urgency. HISTORY OF PRESENT ILLNESS AND HOSPITAL COURSE: Nena Crouch is a 49- year- old female with past medical history of obesity and is status post cholecystectomy. Please see H and P of Dr. Isael Sagastume for full details, but briefly, the night prior to admission, she developed midsternal chest pain that got more severe and radiated to the right arm and both sides of her neck. She has had a history of a negative nuclear stress test back in October 2016, but her troponins on this admission were elevated at 0.54, 0.54, 0.37, 0.19. She was seen in consultation by childcare teacher service, Dr. Gomez, who recommended left heart catheterization, which was performed on 05/20/19 and showed completely nonobstructive coronary arteries. She complained of intermittent abdominal pain, worse with fatty foods for the last 2 weeks, and she got a CT abdomen and pelvis on the night prior to discharge, which showed no findings that explained her symptomatology. She had a negative lipase. She had some elevated blood sugars and A1c was elevated to 6.5. She was started on simethicone and Bentyl. Upon discharge, we recommended to get an emptying study to rule out diabetic gastroparesis. She was initially also hypertensive on admission to , for which she was started on metoprolol. This was continued along with new medications of Lipitor, especially given the new diagnosis of diabetes mellitus. She is morbidly obese and lifestyle changes such as diet and exercise are strongly recommended. Her liver ultrasound and CT abdomen were consistent with fatty infiltration with hepatomegaly. She had a transthoracic echocardiogram on 05/19/19 which demonstrated EF of 55% to 60% with no regional wall motion abnormalities. There appears to be septal flattening and right ventricular systolic pressure was moderately elevated to 49 mmHg. She had been placed on a heparin drip and briefly on a nitro drip, but the latter seemed to not be helpful; in fact, sometimes worsened her pain. The patient was not started on metformin given her acute GI complaints, but would recommend her other oral medications in the outpatient setting. Her LDL was 104, HDL 39, triglycerides 196 and on repeat was LDL 121, HDL 50, triglycerides 94, total cholesterol 190. MEDICATIONS UPON DISCHARGE: Include: 1. Atorvastatin 40 mg daily. 2. Bentyl 20 mg p.o. 2 tabs a.c. p.r.n. 3. Metoprolol tartrate 25 mg p.o. b.i.d. 4. Simethicone 80 mg p.o. a.c. p.r.n. FOLLOWUP: Please follow up with Dr. Anny Laurent within 7 days of discharge. She was also referred to Dr. Padron or another director of technology in the area for further workup of possible IBS and/or, as mentioned, we would like to rule out with an emptying study any diabetic gastroparesis. CONDITION: Improved. DISPOSITION: Home. DIET: Heart-healthy, carbohydrate consistent. TIME SPENT ON DISCHARGE: 35 minutes. [id number]/[facility] #: [id number] JOHN
== END 2019-05-21 12:45 | disposition home or self-care (01) | DRG 190 ==
LOC: ED 21:35 → ICU 05-19 07:47 → MEDTELE 05-20 13:20
PROVIDERS: ADMIT Internal Medicine; ATTEND Internal Medicine
PROC: B2111ZZ Fluoroscopy of Multiple Coronary Arteries using Low Osmolar Contrast (ICD-10-PCS; principal; 2019-05-20 07:00)
DX: I21.4 Non-ST elevation (NSTEMI) myocardial infarction (principal); Z68.42 Body mass index [BMI] 45.0-49.9, adult; J45.909 Unspecified asthma, uncomplicated; R91.8 Other nonspecific abnormal finding of lung field; F17.210 Nicotine dependence, cigarettes, uncomplicated; I16.0 Hypertensive urgency; G47.33 Obstructive sleep apnea (adult) (pediatric); E66.01 Morbid (severe) obesity due to excess calories; K75.81 Nonalcoholic steatohepatitis (NASH); D72.829 Elevated white blood cell count, unspecified; R19.5 Other fecal abnormalities; R10.9 Unspecified abdominal pain; E10.9 Type 1 diabetes mellitus without complications; Z91.041 Radiographic dye allergy status; Z88.6 Allergy status to analgesic agent; Z88.0 Allergy status to penicillin; Z91.040 Latex allergy status; Z90.49 Acquired absence of other specified parts of digestive tract
CPT/HCPCS: 36415; 71046; 71275; 74176; 76705; 80048; 80053; 80061; 80076; 82150; 83036; 83690; 84484; 85025; 85610; 85652; 85730; 86140; 86850; 86900; 86901; 87641; 93005; 93306; 93454; 94660; 96374; 99156; 99285; A9270-GY; C8929; J1200; J1644; J1885; J2250; J2270; J2920; J3010; Q9967

== ENCOUNTER 2019-06-24 09:56 | Emergency (ER) | payer OTHER ==
[2019-06-24 10:05] VITALS: BP 146/87
--- NOTE | 2019-06-24 10:28 | UC ---
General HPI - HPI Summary HPI Summary: 49-year-old woman comes in with a chief complaint of right knee pain and upper respiratory tract infection symptoms. Last evening patient slipped and fell. She reports that her right knee was angulated during the fall. She reports that her right knee continues to feel unstable to walking. She also didn't hurt her low back and hit her head. She reports that she has chronic low back pain. Patient hit her head and states no loss of consciousness no change in vision or speech or weakness or numbness. She reports of her injuries the knee is by far the worse. She reports prior surgery to the right knee. Patient reports upper respiratory tract infection symptoms for one month. She has rhinorrhea cough chest congestion. Sports history of pulmonary nodules that were last checked 2 years ago. Reports that she was told to have him checked every 6 months but she has not. Patient is a smoker. - History of Current Complaint Chief Complaint: UCLowerExtremity Stated Complaint: KNEE PAIN Time Seen by Provider: 06/24/19 10:09 Pain Intensity: 20 - Allergy/Home Medications Allergies/Adverse Reactions: Allergies Allergy/AdvReac Type Severity Reaction Status Date / Time codeine Allergy Headache Verified 06/24/19 10:00 iodine Allergy Rash Verified 06/24/19 10:00 latex Allergy Unknown Verified 06/24/19 10:00 Reaction Details Penicillins Allergy Hives Verified 06/24/19 10:00 Home Medications: Home Medications Aspirin 81 mg CHEW TAB* 1 tab PO DAILY 06/24/19 [History Confirmed 06/24/19] PMH/Surg Hx/FS Hx/Imm Hx Previously Healthy: Yes Other History Of: Negative For: Anticoagulant Therapy - Surgical History Surgical History: Yes Surgery Procedure, Year, and Place: RIGHT KNEE ARTHROSCOPIC 1990 & 2000; GALLBLADDER REMOVED 2009; VERICOSE VEIN RT SIDE 2013 - Family History Known Family History: Positive: Other - Leukemia - father. - Social History Alcohol Use: None Substance Use Type: None Smoking Status (MU): Current Some Day Smoker Type: Cigarettes Amount Used/How Often: 1-2 cigarettes/day Have You Smoked in the Last Year: Yes Household Exposure Type: Cigarettes - Immunization History Most Recent Influenza Vaccination: fall 2015 Most Recent Pneumonia Vaccination: none Review of Systems All Other Systems Reviewed And Are Negative: Yes Constitutional: Positive: Other - see hpi Skin: Positive: Negative Eyes: Positive: Negative ENT: Positive: Nasal Discharge, Sinus Congestion, Sinus Pain/Tenderness Respiratory: Positive: Cough, Other - see hpi Cardiovascular: Positive: Negative Gastrointestinal: Positive: Negative Motor: Positive: Other - se hpi Neurovascular: Positive: Negative Musculoskeletal: Positive: Other: - see hpi Neurological: Positive: Negative Psychological: Positive: Negative Is Patient Immunocompromised?: No Physical Exam Triage Information Reviewed: Yes Appearance: Well-Nourished, Ill-Appearing - mild, Pain Distress - mild with rt knee rom and exam Vital Signs: Initial Vital Signs Temp 98 F 06/24/19 10:01 Pulse 85 06/24/19 10:01 Resp 18 06/24/19 10:01 BP 146/87 06/24/19 10:01 Pulse Ox 98 06/24/19 10:01 Vital Signs Reviewed: Yes Eye Exam: Normal Eyes: Positive: Conjunctiva Clear ENT: Positive: Pharyngeal erythema, Nasal congestion, Nasal drainage, TMs normal Neck: Positive: Supple Respiratory: Positive: Lungs clear, Normal breath sounds, No respiratory distress Cardiovascular: Positive: RRR Musculoskeletal: Positive: Other: - Right knee is swollen and diffusely tender to palpation. It's most tender to palpation on the medial and anterior aspects. Full exam not undertaken because of the patient's level of pain with exam. Normal capillary refill no sensation deficits. Right ankle and foot are tender to palpation. The ankles tender on both malleoli and there is swelling. Foot is tender on the plantar aspect of the arch. Neurological: Positive: Alert Psychological: Positive: Age Appropriate Behavior Skin Exam: Normal Course/Dx - Course Course Of Treatment: Cell Tender: Shaggy Caldwell, ([id number]) Tube Turner: DOV (DOV) Report Date: 06/24/2019 11:15:00 Report Status: Final Start of Report Content Patient Name: LIANG COSBY Medical Record#: [id number] Ordering Physician: Wade Draper MD Acct.#: [id number] : 05/1970 Age: 49 Sex: F Location: [facility] Exam Date: 06/24/19 1019 ADM Status: REG ER Order Information: KNEE RIGHT 4+ VWS Accession Number: [id number] CPT: 18325 INDICATION: Right knee injury. TECHNIQUE: 4 views of the right knee were obtained. FINDINGS: Chondrocalcinosis is observed in the mediolateral tibiofemoral compartments. There is no large effusion. The bone mineralization is within normal limits. A nondisplaced subarticular lucency extends to the medial tibial metaphysis. Anatomic alignment is maintained. The joint spaces are preserved. IMPRESSION: 1. AN EQUIVOCAL NONDISPLACED LUCENCY IS ANNOTATED IN THE MEDIAL TIBIAL METAPHYSIS. RECOMMEND CT FOR FURTHER EVALUATION. 2. CALCINOSIS ABOVE. ____ <Electronically signed by Shaggy Caldwell MD in OV> 06/24/19 1111 Dictated By : Shaggy Caldwell MD Dictated Date/Time: 06/24/19 1108 Transcribed Date/Time: 06/24 Copy to: CC:Anny Laurent MD; Wade Draper MD Imaging - [facility] Imaging [facility] [address] [address] ph [phone]) ph ([phone]) ph ([phone]) ===== End of Report Content Cell Tender: Deniz Valenzuela F, ([id number]) Tube Turner: DOV ( NUANCE) Report Date: 06/24/2019 11:14:00 Report Status: Final ====== Start of Report Content Patient Name: LIANG COSBY Medical Record#: [id number] Ordering Physician: Wade Draper MD Acct.#: [id number] : 1970 Age: 49 Sex: F Location: [facility] Exam Date: 06/24/19 1019 ADM Status: REG ER Order Information: CHEST PA LAT 2 VWS Accession Number: [id number] CPT: 20427 INDICATION: Cough congestion, history of lung nodules. COMPARISON: Comparison is made with a prior CT of the chest from May 19, 2019 and a prior chest x-ray study from May 18, 2019. TECHNIQUE: Dual-energy PA and lateral views of the chest were obtained. FINDINGS: The heart is within normal limits in size. Mediastinal and hilar contours appear within normal limits. The lungs are slightly hyperinflated. No significant infiltrate or pleural effusion is seen. There is a faint 5 mm nodular density which projects posteriorly over the lower lobes on the lateral image which is unchanged from the prior chest x-ray study appears to correlate with a calcified pulmonary nodule in the left lower lobe on the prior CT of the chest. IMPRESSION: NO EVIDENCE FOR ACTIVE CARDIOPULMONARY DISEASE. <Electronically signed by Deniz Valenzuela MD in OV> 06/24/19 1110 Dictated By: Deniz Valenzuela MD Dictated Date/Time: 06/24/19 1106 Transcribed Date/Time: 06/24/19 1106 Copy to: CC:Anny Laurent MD; Wade Draper MD Imaging - [facility] [place] [facility] - [facility] Imaging - [facility] [address] [facility] [address] ph [phone]) ph ([phone]) ph ([phone]) End of Report Content - Diagnoses Provider Diagnosis: Bronchitis with bronchospasm Discharge ED - Sign-Out/Discharge Documenting (check all that apply): Patient Departure All imaging exams completed and their final reports reviewed: Yes - Discharge Plan Condition: Stable Disposition: HOME Prescriptions: Albuterol HFA INHALER* [Ventolin HFA Inhaler*] 2 puff INH Q4H PRN #1 mdi PRN Reason: Wheezing DOXYcycline CAP(*) [DOXYcycline 100MG CAP(*)] 100 mg PO BID #20 cap Patient Education Materials: Acute Bronchitis (ED), Bronchospasm (ED) Referrals: Anny Laurent MD [Primary Care Provider] - Jessee Dan MD [Medical Doctor] - Additional Instructions: FOLLOW UP WITH YOUR PRIMARY CARE DOCTOR FOR YOUR BRONCHITIS. FOLLOW UP WITH ORTHOPEDICS FOR YOUR RIGHT KNEE INJURY. GET REEVALUATED SOONER IF NOT IMPROVED OR WORSE OR ANY QUESTIONS OR CONCERNS. - Billing Disposition and Condition Condition: STABLE Disposition: Home
[2019-06-24] MEDS ORDERED: Ibuprofen TAB* 600 MG PO ONE (11:34)
== END 2019-06-24 12:32 | disposition home or self-care (01) ==
LOC: UCEAST 09:56
DX: S93.601A Unspecified sprain of right foot, initial encounter (principal); J40 Bronchitis, not specified as acute or chronic; J98.01 Acute bronchospasm; M17.11 Unilateral primary osteoarthritis, right knee; M11.261 Other chondrocalcinosis, right knee; M89.8X6 Other specified disorders of bone, lower leg; M19.071 Primary osteoarthritis, right ankle and foot; M25.561 Pain in right knee; M25.461 Effusion, right knee; F17.210 Nicotine dependence, cigarettes, uncomplicated; Z88.0 Allergy status to penicillin; Z88.5 Allergy status to narcotic agent; Z88.8 Allergy status to other drugs, medicaments and biological substances; Z91.040 Latex allergy status; W01.0XXA Fall on same level from slipping, tripping and stumbling without subsequent striking against object, initial encounter; Y92.9 Unspecified place or not applicable
CPT/HCPCS: 71046; 99213; A9270-GY; G0463

== ENCOUNTER 2019-07-16 22:42 | Emergency (ER) | payer OTHER ==
[2019-07-16 23:12] LABS: ABS Basophils 0.1 10^3/ul (0-0.2); ABS Eosinophils 0.6 10^3/ul (0-0.6); ABS Lymphocytes 3.3 10^3/ul (1.0-4.8); ABS Monocytes 0.6 10^3/ul (0-0.8); ABS Neutrophils 4.8 10^3/ul (1.5-7.7); Eosinophil % 6.1 %; Hematocrit 39 % (35-47); Hemoglobin 13.6 g/dL (12.0-16.0); Lymphocyte % 35.1 %; Mean Corpuscular HGB Conc 35 g/dL (31-36); Mean Corpuscular Hemoglobin 32 pg (27-31); Mean Corpuscular Volume 91 fL (80-97); Mean Platelet Volume 7.8 fL (7.4-10.4); Platelet Count 291 10^3/uL (150-450); Red Blood Count 4.25 10^6 /uL (3.70-4.87); Red Cell Distribution Width 13 % (10-15); White Blood Count 9.3 10^3/uL (3.5-10.8)
[2019-07-16 23:26] LABS: INR 0.97 (0.82-1.09)
[2019-07-16 23:30] LABS: Albumin 3.8 g/dL (3.2-5.2); Albumin/Globulin Ratio 1.5 (1-3); BUN/Creatinine Ratio 18.8 (8-20); Calcium 8.8 mg/dL (8.6-10.3); EGFR African American 118.9 (>60); EGFR Non-African American 98.2 (>60); Globulin 2.6 g/dL (2-4); Potassium 3.7 mmol/L (3.5-5.0); Total Bilirubin 0.3 mg/dL (0.2-1.0); Total Protein 6.4 g/dL (6.4-8.9)
[2019-07-16 23:31] LABS: Troponin I 0.01 ng/mL (<0.03)
[2019-07-17 00:09] LABS: C Reactive Protein 3.37 mg/L (<8.01)
[2019-07-17] MEDS ORDERED: Ketorolac INJ* 30 MG/ML 1 ML VIAL IM ONE (01:53)
--- NOTE | 2019-07-17 02:26 | ED ---
HPI Chest Pain - HPI Summary HPI Summary: 49-year-old male presents with chest pain and abdominal pain today. States that she was driving and she felt funny so she pulled over. States that she may have fallen asleep. She woke up with chest pain. States that it also had abdominal pain the same time on the right side. chest pain and abdominal pain are sharp. abd pain radiates to the right shoulder. She feels similar to before she had her gallbladder removed. She admits to little nausea but no vomiting. No urinary symptoms. No diarrhea constipation. No shortness of breath. She has been sick with sinutis and pneumonia for the past couple weeks. She is currently on doxycycline for such. She admits occasional cough. She was seen here 2 months ago and had a negative heart cath. She is not diabetic. No history of high blood pressure. She denies a family history of cardiac disease. Is a smoker. States that she also has been having right calf pain and has some swelling to her right thigh. She bang her right thigh a couple weeks ago. - History of Current Complaint Chief Complaint: EDChestPainROMI Time Seen by Provider: 07/16/19 23:25 Pain Intensity: 9 - Additional Pertinent History Primary Care Physician: [id number] - Allergy/Home Medications Allergies/Adverse Reactions: Allergies Allergy/AdvReac Type Severity Reaction Status Date / Time codeine Allergy Headache Verified 06/24/19 10:00 iodine Allergy Rash Verified 06/24/19 10:00 latex Allergy Unknown Verified 06/24/19 10:00 Reaction Details Penicillins Allergy Hives Verified 06/24/19 10:00 PMH/Surg Hx/FS Hx/Imm Hx Endocrine/Hematology History: Denies: Hx Anticoagulant Therapy, Hx Diabetes, Hx Thyroid Disease Cardiovascular History: Denies: Hx Angina, Hx Congestive Heart Failure, Hx Coronary Artery Disease, Hx Hypercholesterolemia, Hx Hypertension, Hx Myocardial Infarction, Hx Pacemaker /ICD, Hx Valvular Heart Disease Respiratory History: Reports: Hx Asthma, Other Respiratory Problems/Disorders - KNOWN LUNG NODULES, FOLLOWED WITH PERIODIC CT SCANS Denies: Hx Chronic Obstructive Pulmonary Disease (COPD) GI History: Reports: Hx Gall Bladder Disease, Other GI Disorders - Chronic loose stools History: Denies: Hx Chronic Renal Failure, Hx Renal Disease Musculoskeletal History: Reports: Hx Back Problems Denies: Hx Arthritis, Hx Osteoporosis Sensory History: Reports: Hx Contacts or Glasses - glasses at home Denies: Hx Hearing Aid Opthamlomology History: Reports: Hx Contacts or Glasses - glasses at home Neurological History: Reports: Other Neuro Impairments/Disorders - fibromyalgia , numbness right Denies: Hx Dementia, Hx Seizures Psychiatric History: Denies: Hx Panic Disorder, Hx Substance Abuse - Surgical History Surgery Procedure, Year, and Place: RIGHT KNEE ARTHROSCOPIC 1990 & 2000; GALLBLADDER REMOVED 2009; VERICOSE VEIN RT SIDE 2013 - Immunization History Date of Tetanus Vaccine: unk Date of Influenza Vaccine: none Infectious Disease History: No Infectious Disease History: Denies: Hx Hepatitis, Hx Human Immunodeficiency Virus (HIV), Traveled Outside the [place] in Last 30 Days - Family History Known Family History: Positive: Other - Leukemia - father. Negative: Cardiac Disease - Social History Alcohol Use: None Hx Substance Use: No Substance Use Type: Reports: None Hx Tobacco Use: Yes Smoking Status (MU): Heavy Every Day Tobacco Smoker Type: Cigarettes Amount Used/How Often: 1-2 cigarettes/day Have You Smoked in the Last Year: Yes Review of Systems Negative: Fever Positive: Chest Pain Positive: Cough Positive: Abdominal Pain, Nausea. Negative: Vomiting, Diarrhea All Other Systems Reviewed And Are Negative: Yes Physical Exam Triage Information Reviewed: Yes Vital Signs On Initial Exam: Initial Vitals Temp Pulse Resp BP Pulse Ox 97.6 F 70 24 124/70 95 07/16/19 22:44 07/16/19 22:44 07/16/19 22:44 07/16/19 22:44 07/16/19 22:44 Vital Signs Reviewed: Yes Appearance: Positive: Well-Appearing Skin: Positive: Warm, Dry Head/Face: Positive: Normal Head/Face Inspection Eyes: Positive: Normal, EOMI, DAWNA, Conjunctiva Clear ENT: Positive: Pharynx normal, TMs normal Respiratory/Lung Sounds: Positive: Clear to Auscultation, Breath Sounds Present , Other - reproducible chest pain Cardiovascular: Positive: Normal, RRR Abdomen Description: Positive: Soft, Other: - tenderness RLQ and RUQ Bowel Sounds: Positive: Present Musculoskeletal: Positive: Normal, Strength/ROM Intact - right leg, Other - tenderness right calf and thigh, potential hematoma felt right thigh Neurological: Positive: Normal Psychiatric: Positive: Normal Procedures - Sedation Patient Received Moderate/Deep Sedation with Procedure: No Diagnostics - Vital Signs Vital Signs Temp Pulse Resp BP Pulse Ox 07/17/19 02:20 70 17 114/70 95 07/17/19 02:00 65 28 97 07/17/19 01:50 67 17 128/66 95 07/17/19 01:21 69 24 120/66 94 07/17/19 01:14 7 07/17/19 00:50 66 18 107/54 96 07/17/19 00:23 64 23 95 07/17/19 00:20 66 17 119/69 94 07/17/19 00:00 66 95 07/16/19 23:50 69 17 97/49 96 07/16/19 23:19 61 13 129/72 98 07/16/19 23:00 66 29 96 07/16/19 22:50 73 26 124/70 95 07/16/19 22:49 67 34 96 07/16/19 22:44 97.6 F 70 24 124/70 95 - Laboratory Lab Results: Lab Results 07/16/19 07/16/19 07/16/19 Range/Units 23:06 23:06 23:06 WBC 9.3 (3.5-10.8) 10^3/uL RBC 4.25 (3.70-4.87) 10^6 /uL Hgb 13.6 (12.0-16.0) g/dL Hct 39 (35-47) % MCV 91 (80-97) fL MCH 32 H (27-31) pg MCHC 35 (31-36) g/dL RDW 13 (10-15) % Plt Count 291 (150-450) 10^3/uL MPV 7.8 (7.4-10.4) fL Neut % (Auto) 51.6 % Lymph % (Auto) 35.1 % [place] % (Auto) 6.5 % Eos % (Auto) 6.1 % Baso % (Auto) 0.7 % Absolute Neuts (auto) 4.8 (1.5-7.7) 10^3/ul Absolute Lymphs (auto) 3.3 (1.0-4.8) 10^3/ul Absolute Monos (auto) 0.6 (0-0.8) 10^3/ul Absolute Eos (auto) 0.6 (0-0.6) 10^3/ul Absolute Basos (auto) 0.1 (0-0.2) 10^3/ul Absolute Nucleated RBC 0.0 10^3/ul Nucleated RBC % 0.0 INR (Anticoag Therapy) 0.97 (0.82-1.09) Sodium 141 (135-145) mmol/L Potassium 3.7 (3.5-5.0) mmol/L Chloride 107 (101-111) mmol/L Carbon Dioxide 28 (22-32) mmol/L Anion Gap 6 (2-11) mmol/L BUN 12 (6-24) mg/dL Creatinine 0.64 (0.51-0.95) mg/dL Est GFR ( Amer) 118.9 (>60) Est GFR (Non-Af Amer) 98.2 (>60) BUN/Creatinine Ratio 18.8 (8-20) Glucose 109 H (70-100) mg/dL Calcium 8.8 (8.6-10.3) mg/dL Total Bilirubin 0.30 (0.2-1.0) mg/dL AST 21 (13-39) U/L ALT 34 (7-52) U/L Alkaline Phosphatase 104 (34-104) U/L Troponin I 0.01 (<0.03) ng/mL C-Reactive Protein 3.37 (<8.01) mg/L Total Protein 6.4 (6.4-8.9) g/dL Albumin 3.8 (3.2-5.2) g/dL Globulin 2.6 (2-4) g/dL Albumin/Globulin Ratio 1.5 (1-3) Lipase 10 L (11.0-82.0) U/L Result Diagrams: 07/16/19 23:06 07/16/19 23:06 Lab Statement: Any lab studies that have been ordered have been reviewed, and results considered in the medical decision making process. - Radiology chest Radiology Interpretation Completed By: ED Physician Summary of Radiographic Findings: no active disease - CT abd CT Interpretation Completed By: Radiologist Summary of CT Findings: IMPRESSION: 1. The appendix is unremarkable. 2. No visible renal, ureteral or bladder calculi. - Ultrasound No standard instances Ultrasound Interpretation Completed By: Radiologist Summary of Ultrasound Findings: IMPRESSION: No visible acute DVT - EKG No standard instances Cardiac Rate: NL EKG Rhythm: Sinus Rhythm EKG Comparison: No Significant Change Summary of EKG Findings: sinus rhythm Re-Evaluation - Re-Evaluation First Eval Comment: patient asleep, chest and abd pain improved Chest Pain Course/Dx - Course Course Of Treatment: 49-year-old male presents with chest pain and abdominal pain today. States that she was driving and she felt funny so she pulled over. States that she may have fallen asleep. She woke up with chest pain. States that it also had abdominal pain the same time on the right side. chest pain and abdominal pain are sharp. abd pain radiates to the right shoulder. She feels similar to before she had her gallbladder removed. She admits to little nausea but no vomiting. No urinary symptoms. No diarrhea constipation. No shortness of breath. She has been sick with sinutis and pneumonia for the past couple weeks. She is currently on doxycycline for such. She admits occasional cough. She was seen here 2 months ago and had a negative heart cath. She is not diabetic. No history of high blood pressure. She denies a family history of cardiac disease. Is a smoker. States that she also has been having right calf pain and has some swelling to her right thigh. She bang her right thigh a couple weeks ago. On exam feels like a hematoma of right thigh. Is tenderness along right calf. Reproducible chest pain. Tender in the right abdomen. wbc normal. Troponins 2 normal. Ultrasound shows no DVT. CT abdomen is normal. Gave Toradol with relief. Heart score of 3. As had a negative stress negative catheter 2 months ago we'll discharge. Told to follow-up with primary. Gave referral for GI for her abdominal pain. Patient understands and agrees with plan. - Chest Pain Differential Diagnosis/HQI/PQRI: Angina, Chest Wall, GI Disease, Lower Respiratory Infection - Diagnoses Provider Diagnoses: Chest pain, Abdominal pain, Right leg pain Discharge ED - Sign-Out/Discharge Documenting (check all that apply): Patient Departure - Discharge Plan Condition: Good Disposition: HOME Patient Education Materials: Chest Wall Pain (ED) Referrals: Anny Laurent MD [Primary Care Provider] - Mario Alberto Watkins DO [Doctor of Osteopathy] - Additional Instructions: Take ibuprofen or Tylenol every 6 hours as needed for pain Follow up with primary within 5 days follow up with GI Return to ED if develop any new or worsening symptoms - Billing Disposition and Condition Condition: GOOD Disposition: Home
[2019-07-17 03:03] VITALS: BP 123/69
== END 2019-07-17 03:03 | disposition home or self-care (01) ==
LOC: ED 22:42
DX: R07.9 Chest pain, unspecified (principal); Z88.0 Allergy status to penicillin; F17.210 Nicotine dependence, cigarettes, uncomplicated; R05 Cough; R10.9 Unspecified abdominal pain; R11.10 Vomiting, unspecified; M79.604 Pain in right leg; R94.31 Abnormal electrocardiogram [ECG] [EKG]
CPT/HCPCS: 36415; 71045; 74176; 80053; 83690; 84484; 85025; 85610; 86140; 93005; 96372; 99284; J1885

== ENCOUNTER 2019-08-18 13:02 | Emergency (ER) | payer OTHER ==
[2019-08-18 13:36] VITALS: BP 122/73
[2019-08-18 14:20] LABS: Influenza A Molecular Negative (Negative); Influenza B Molecular Negative (Negative)
--- NOTE | 2019-08-18 14:36 | UC ---
FLU HPI - HPI Summary HPI Summary: started 5-6 days ago with GI upset, now has cough and feels fatigued, she is prscribed inhaler but has not been using it. - History of Current Complaint Chief Complaint: UCRespiratory Stated Complaint: SORE THROAT, CONGESTION, COUGH Time Seen by Provider: 08/18/19 13:54 Hx Obtained From: Patient Hx Last Menstrual Period: December 2018 ?: No Onset/Duration: Gradual Onset Severity Currently: Moderate Severity Initially: Mild Pain Intensity: 8 Associated Signs & Symptoms: Positive: Fever, Diarrhea - resolved now - Allergy/Home Medications Allergies/Adverse Reactions: Allergies Allergy/AdvReac Type Severity Reaction Status Date / Time codeine Allergy Headache Verified 08/18/19 13:37 iodine Allergy Rash Verified 08/18/19 13:37 latex Allergy Unknown Verified 08/18/19 13:37 Reaction Details Penicillins Allergy Hives Verified 08/18/19 13:37 PMH/Surg Hx/FS Hx/Imm Hx Previously Healthy: Yes Respiratory History: Asthma Other History Of: Negative For: Anticoagulant Therapy - Surgical History Surgical History: Yes Surgery Procedure, Year, and Place: RIGHT KNEE ARTHROSCOPIC 1990 & 2000; GALLBLADDER REMOVED 2009; VERICOSE VEIN RT SIDE 2013 - Family History Known Family History: Positive: Other - Leukemia - father. Negative: Cardiac Disease - Social History Occupation: Unemployed Lives: With Family Alcohol Use: None Substance Use Type: None Smoking Status (MU): Heavy Every Day Tobacco Smoker Type: Cigarettes Amount Used/How Often: 1-2 cigarettes/day Have You Smoked in the Last Year: Yes Household Exposure Type: Cigarettes Cessation Counseling: Patient Advised to Stop - Immunization History Most Recent Influenza Vaccination: fall 2015 Most Recent Pneumonia Vaccination: none Review of Systems All Other Systems Reviewed And Are Negative: Yes Constitutional: Positive: Fever, Chills, Fatigue Skin: Positive: Negative ENT: Positive: Sinus Congestion Respiratory: Positive: Cough. Negative: Shortness Of Breath Cardiovascular: Positive: Negative, Chest Pain Gastrointestinal: Positive: Negative Neurological/Mental Status: Positive: Negative Psychological: Positive: Negative Is Patient Immunocompromised?: No Physical Exam Triage Information Reviewed: Yes Appearance: Well-Appearing, No Pain Distress, Well-Nourished Vital Signs: Initial Vital Signs Temp 97.9 F 08/18/19 13:34 Pulse 73 08/18/19 13:34 Resp 16 08/18/19 13:34 BP 122/73 08/18/19 13:34 Pulse Ox 98 08/18/19 13:34 Vital Signs Reviewed: Yes Eyes: Positive: Conjunctiva Clear ENT: Positive: Pharynx normal Neck exam: Normal Neck: Positive: Supple, Nontender, No Lymphadenopathy Respiratory: Positive: Wheezing - mild expiratory wheezing, no evdence SOB Cardiovascular Exam: Normal Cardiovascular: Positive: RRR, No Murmur Abdominal Exam: Normal Abdomen Description: Positive: Nontender, No Organomegaly, Soft Bowel Sounds: Positive: Present Neurological Exam: Normal Neurological: Positive: Alert Psychological Exam: Normal Skin Exam: Normal Flu Course/Dx - Differential Dx/Diagnosis Differential Diagnosis/HQI/PQRI: Influenza, Upper Respiratory Infection Provider Diagnosis: Upper respiratory infection Discharge ED - Sign-Out/Discharge Documenting (check all that apply): Patient Departure All imaging exams completed and their final reports reviewed: No Studies - Discharge Plan Condition: Good Disposition: HOME Prescriptions: Albuterol HFA INHALER* [Ventolin HFA Inhaler*] 2 puff INH Q4H PRN #1 mdi PRN Reason: Wheezing Azithromycin TAB* [Zithromax TAB (Z-MADDIE) 250 mg #6 tabs] 2 tab PO .TODAY, THEN 1 DAILY #1 maddie Patient Education Materials: Acute Bronchitis (ED) Referrals: Delonte Little MD [Primary Care Provider] - 3 Days (if no better) Additional Instructions: drink plenty of fluids and rest start antibiotic as directed and use your inhaler - Billing Disposition and Condition Condition: GOOD Disposition: Home
== END 2019-08-18 14:43 | disposition home or self-care (01) ==
LOC: UCEAST 13:02
DX: J06.9 Acute upper respiratory infection, unspecified (principal); J45.909 Unspecified asthma, uncomplicated; R53.83 Other fatigue; R09.81 Nasal congestion; F17.210 Nicotine dependence, cigarettes, uncomplicated; Z88.5 Allergy status to narcotic agent; Z88.0 Allergy status to penicillin; Z91.040 Latex allergy status; Z91.09 Other allergy status, other than to drugs and biological substances
CPT/HCPCS: 99212; G0463

== ENCOUNTER 2023-10-12 11:34 | Inpatient (IN) ==
[2023-10-12 11:51] LABS: ABS Basophils 0.1 10^3/uL (0.0-0.1); ABS Eosinophils 0.9 10^3/uL (0.0-0.5); ABS Lymphocytes 3.8 10^3/uL (1.0-4.8); ABS Monocytes 0.7 10^3/uL (0.0-0.9); ABS Neutrophils 6.1 10^3/uL (1.5-7.6); ABS Nucleated RBC 0.01 10^3/ul; Eosinophil % 7.6 %; Hematocrit 38.8 % (35-45); Hemoglobin 13.4 g/dL (11.5-14.3); Mean Corpuscular Hemoglobin 31.1 pg (27-33); Mean Corpuscular Hgb Conc 34.6 g/dL (31-36); Mean Platelet Volume 7.7 fL (7.5-11.2); Nucleated Red Blood Cells % 0.1 %/100WBC (0.0-0.8); Platelet Count 309 10^3/uL (150-450); Red Blood Count 4.32 10^6/uL (3.63-4.92); Red Cell Distribution Width 13.3 % (12-17); White Blood Count 11.5 10^3/uL (3.8-11.8)
[2023-10-12 12:05] LABS: Activated Partial Thrombo Time 27.6 seconds (26.0-38.0); INR 1.02 (0.83-1.13)
[2023-10-12 12:19] LABS: Albumin 3.8 g/dL (3.2-5.2); Albumin/Globulin Ratio 1.6 (1-3); Calcium 8.9 mg/dL (8.6-10.3); Creatinine, Serum 0.58 mg/dL (0.51-0.95); Direct Bilirubin 0.1 mg/dL (0.03-0.18); Globulin 2.4 g/dL (2-4); HDL Cholesterol 43.8 mg/dL; Indirect Bilirubin 0.4 mg/dL (0.3-1.0); Potassium 3.5 mmol/L (3.5-5.0); Total Bilirubin 0.5 mg/dL (0.2-1.0); Total Protein 6.2 g/dL (6.4-8.9); eGFR CKD-EPI 107.5 (>60)
[2023-10-12 12:39] LABS: Urine Appearance Clear; Urine Bilirubin Negative (Negative); Urine Blood Negative (Negative); Urine Color Light-Yellow; Urine Glucose 4+ (>=1000 mg/dL) (Negative); Urine Ketones Negative (Negative); Urine Nitrite Negative (Negative); Urine Protein Negative (Negative); Urine Urobilinogen Negative (Negative)
[2023-10-12 13:36] LABS: High Sensitivity Troponin 1 Hr 4 pg/mL (<15)
[2023-10-12] MEDS ORDERED: Dextrose 50% Syringe 50 ml 25 GM/50 ML SYRINGE IV PUSH PRN (14:44)
[2023-10-12] MEDS: Enoxaparin 40 MG/0.4 ML SYR SUBCUT SCH (18:18)
[2023-10-13] MEDS: Albuterol HFA INHALER 8 gm MDI INH PRN (19:50)
[2023-10-14 06:48] LABS: Albumin 3.7 g/dL (3.2-5.2); Albumin/Globulin Ratio 1.5 (1-3); Calcium 9.2 mg/dL (8.6-10.3); Creatinine, Serum 0.45 mg/dL (0.51-0.95); Globulin 2.5 g/dL (2-4); Potassium 3.5 mmol/L (3.5-5.0); Total Bilirubin 0.7 mg/dL (0.2-1.0); Total Protein 6.2 g/dL (6.4-8.9); eGFR CKD-EPI 114.3 (>60)
[2023-10-15 06:00] LABS: ABS Basophils 0.1 10^3/uL (0.0-0.1); ABS Eosinophils 0.6 10^3/uL (0.0-0.5); ABS Monocytes 0.6 10^3/uL (0.0-0.9); ABS Nucleated RBC 0.02 10^3/ul; Eosinophil % 5.3 %; Hematocrit 40.9 % (35-45); Hemoglobin 14.5 g/dL (11.5-14.3); Lymphocyte % 26.2 %; Mean Corpuscular Hemoglobin 31.6 pg (27-33); Mean Corpuscular Hgb Conc 35.5 g/dL (31-36); Mean Corpuscular Volume 88.8 fL (80-97); Mean Platelet Volume 7.6 fL (7.5-11.2); Nucleated Red Blood Cells % 0.2 %/100WBC (0.0-0.8); Platelet Count 339 10^3/uL (150-450); Red Cell Distribution Width 13.1 % (12-17); White Blood Count 11.3 10^3/uL (3.8-11.8)
[2023-10-15 15:28] LABS: High Sensitivity Troponin 1 Hr 4 pg/mL (<15)
[2023-10-15] MEDS ORDERED: Al Hydrox/Mg Hydrox/Simet LIQ 30 ML UDC PO PRN (15:34)
[2023-10-16] MEDS: Insulin GLARGINE 100 un/ml 10 ml VIAL SUBCUT SCH (09:41)
[2023-10-16] MEDS: Enoxaparin 100 MG/ML SYR SUBCUT SCH (09:41)
[2023-10-16 09:57] VITALS: BP 117/57
[2023-10-16 12:45] LABS: Rapid COVID-19 Molecular Undetected (Undetected)
== END 2023-10-16 13:59 | DRG 134 ==
LOC: ED 11:34 → EDHOLD 11:34 → SUATTDRO 14:39 → EDHOLD 10-13 11:58 → MEDTELE 10-13 13:27 → SUATTDRO 10-15 10:20
PROVIDERS: ADMIT Internal Medicine; ATTEND Internal Medicine

== ENCOUNTER 2024-03-12 11:46 | Observation (INO) ==
[2024-03-12] MEDS ORDERED: methylPREDNISolone SOD SUCC 125 mg 2 ML VIAL ONE (11:57)
[2024-03-12] MEDS ORDERED: EPINEPHrine Anaphylaxis SYR CERTADOSE SYR KIT ONE (11:57)
[2024-03-12] MEDS: Iodixanol (CONTRAST) 320 MG/ML 100 ML SDV IV ONE (12:01)
[2024-03-12] MEDS: methylPREDNISolone SOD SUCC 125 mg 2 ML VIAL IV ONE (12:05)
[2024-03-12 12:15] LABS: ABS Eosinophils 0.6 10^3/uL (0.0-0.5); ABS Lymphocytes 3.9 10^3/uL (1.0-4.8); ABS Monocytes 0.5 10^3/uL (0.0-0.9); ABS Nucleated RBC 0.01 10^3/ul; Eosinophil % 6.1 %; Hematocrit 38.8 % (35-45); Lymphocyte % 43.3 %; Mean Corpuscular Hemoglobin 30.4 pg (27-33); Mean Corpuscular Hgb Conc 33.4 g/dL (31-36); Mean Corpuscular Volume 90.8 fL (80-97); Mean Platelet Volume 8.1 fL (7.5-11.2); Nucleated Red Blood Cells % 0.1 %/100WBC (0.0-0.8); Platelet Count 295 10^3/uL (150-450); Red Blood Count 4.27 10^6/uL (3.63-4.92); Red Cell Distribution Width 13.3 % (12-17); White Blood Count 9.1 10^3/uL (3.8-11.8)
[2024-03-12 12:24] LABS: Activated Partial Thrombo Time 29.9 seconds (26.0-38.0); INR 0.94 (0.85-1.14)
[2024-03-12 12:34] LABS: Albumin/Globulin Ratio 1.7 (1-3); Calcium 8.9 mg/dL (8.6-10.3); Creatinine, Serum 0.53 mg/dL (0.51-0.95); Direct Bilirubin 0.1 mg/dL (0.03-0.18); Globulin 2.3 g/dL (2-4); HDL Cholesterol 61.8 mg/dL; Indirect Bilirubin 0.4 mg/dL (0.3-1.0); Potassium 3.8 mmol/L (3.5-5.0); Total Bilirubin 0.5 mg/dL (0.2-1.0); Total Protein 6.3 g/dL (6.4-8.9); eGFR CKD-EPI 109.2 (>60)
[2024-03-12] MEDS: Acetaminophen IV 1 GM/100ML 1,000 MG/100 ML BAG IV ONE (13:13)
[2024-03-12 13:37] LABS: High Sensitivity Troponin 1 Hr 3 pg/mL (<15)
[2024-03-12 13:43] LABS: Urine Appearance Clear; Urine Bilirubin Negative (Negative); Urine Blood Negative (Negative); Urine Color Light-Yellow; Urine Glucose Negative (Negative); Urine Ketones Negative (Negative); Urine Nitrite Negative (Negative); Urine Protein Negative (Negative); Urine Specific Gravity 1.038 (1.002-1.030); Urine Urobilinogen Negative (Negative)
[2024-03-12] MEDS ORDERED: Albuterol HFA INHALER 8 gm MDI INH PRN (19:39)
[2024-03-12] MEDS ORDERED: Dextrose 50% Syringe 50 ml 25 GM/50 ML SYRINGE IV PUSH PRN (19:41)
[2024-03-13 05:16] LABS: ABS Monocytes 0.6 10^3/uL (0.0-0.9); Eosinophil % 0.3 %; Hematocrit 40.1 % (35-45); Hemoglobin 13.5 g/dL (11.5-14.3); Lymphocyte % 25.6 %; Mean Corpuscular Hemoglobin 30.6 pg (27-33); Mean Corpuscular Hgb Conc 33.8 g/dL (31-36); Mean Corpuscular Volume 90.4 fL (80-97); Mean Platelet Volume 8.1 fL (7.5-11.2); Platelet Count 318 10^3/uL (150-450); Red Blood Count 4.43 10^6/uL (3.63-4.92); Red Cell Distribution Width 13.3 % (12-17); White Blood Count 11.7 10^3/uL (3.8-11.8)
[2024-03-13 05:48] LABS: Calcium 8.8 mg/dL (8.6-10.3); Creatinine, Serum 0.44 mg/dL (0.51-0.95); eGFR CKD-EPI 114.2 (>60)
[2024-03-13 14:29] VITALS: BP 130/73
== END 2024-03-13 16:37 | disposition home or self-care (01) ==
LOC: ED 11:46 → EDHOLD 11:46 → SUATTDRO 14:48 → MEDTELE 19:17
PROVIDERS: ADMIT Student in an Organized Health Care Education/Training Program; ATTEND Internal Medicine